=== PATIENT | female | born 1960 | race Caucasian/White ===

== ENCOUNTER → 2016-06-09 | Outpatient (REF) | payer OTHER ==
[2016-06-09 15:40] LABS: BASO % 0.3 % (0.0-1.0); EOS # 0.2 K/mm3 (0.0-0.50); EOS % 1.7 % (0.0-3.0); LARGE UNSTAINED CELL # 0.1 K/mm3 (0.0-0.4); LARGE UNSTAINED CELL % 1.1 % (0.0-4.0); LYMPH # 1.9 K/mm3 (1.5-4.5); MEAN CORPUSCULAR HGB CONC 34.5 g/dl (32.0-36.5); MEAN CORPUSCULAR VOLUME 92.9 fl (80.0-96.0); MONO # 0.5 K/mm3 (0.0-0.8); MONO % 4.9 % (0.0-5.0); NEUTROPHILS # 6.8 K/mm3 (1.8-7.7); PLATELET COUNT, AUTOMATED 342 k/mm3 (150-450); RED CELL DISTRIBUTION WIDTH 12.2 % (11.5-14.5); WHITE BLOOD COUNT 9.3 K/mm3 (4.0-10.0)
[2016-06-09 15:50] LABS: ALBUMIN 3.4 GM/DL (3.2-5.2); ALBUMIN/GLOBULIN RATIO 0.94 (1.00-1.93); ALKALINE PHOSPHATASE 55 U/L (45-117); ALT/SGPT 18 U/L (12-78); AMYLASE 49 U/L (25-115); ANION GAP 9 MEQ/L (8-16); AST/SGOT 10 U/L (15-37); BILIRUBIN,TOTAL 0.8 MG/DL (0.2-1.0); BLOOD UREA NITROGEN 16 MG/DL (7-18); CALCIUM LEVEL 8.8 MG/DL (8.5-10.1); CARBON DIOXIDE LEVEL 29 MEQ/L (21-32); CHLORIDE LEVEL 100 MEQ/L (98-107); CREATININE FOR GFR 0.94 MG/DL (0.55-1.02); GLOMERULAR FILTRATION RATE > 60.0 (>51); GLUCOSE, FASTING 84 MG/DL (70-105); POTASSIUM SERUM 3.5 MEQ/L (3.5-5.1); SODIUM LEVEL 138 MEQ/L (136-145)
== END ==
LOC: M LABDRAW1 13:15
PROVIDERS: ATTEND Emergency Medicine
DX: R10.11 Right upper quadrant pain (principal)

== ENCOUNTER → 2016-06-16 | Outpatient (CLI) | payer BC, OTHER ==
--- NOTE | 2016-06-16 15:31 | REPMRS ---
Patient History The patient states she had a clinical breast exam in 12/23 Family history of colorectal cancer in maternal grandmother at age 78. Taking hormonal contraceptives for 28 years. Digital Woman Screen Mammo: June 16, 2016 - Exam #: [id number] Bilateral CC and MLO view(s) were taken. Technologist: Tamiko Varghese, Technologist Prior study comparison: March 11, 2015, digital woman screen mammo performed at [facility]. December 01, 2013, bilateral bilat screen digital mammo, performed at [facility] ([facility] FINDINGS: There are scattered fibroglandular densities. There has been no change in the appearance of the mammogram from the prior studies. There is a mild amount of residual fibroglandular tissue which is fairly symmetric. There is no interval development of dominant mass, architectural distortion, or clustered microcalcification suggestive of malignancy. ASSESSMENT: BI-RADS/ACR category 1 mammogram. Negative. Recommendation Routine screening mammogram in 1 year (for women over age 40). This mammogram was interpreted with the aid of an FDA-approved computer-aided dectection system. Electronically Signed By: Jared Chow MD 06/16/16 [id number]
== END ==
LOC: M WHC 15:09
PROVIDERS: ATTEND Obstetrics & Gynecology
DX: Z12.31 Encounter for screening mammogram for malignant neoplasm of breast (principal)

== ENCOUNTER 2016-07-06 07:28 | Day surgery (SDC) | payer BC, OTHER ==
[2016-07-06] VITALS (7 sets, daily range): BP systolic 101–117; BP diastolic 56–68
[~2016-07-06] VITALS: Ht 162.6 cm; Wt 86.2 kg
[~2016-07-06 07:28] MED LIST: AMET1TAB4 PO; ATEN50TA2 PO; ESCI20TA PO; HYOS0.1259 PO; LEVO100T5 PO; LISI20TA3 PO; OMEP40CA2 PO
[2016-07-06] MEDS ORDERED: LR 1,000 ML IV SCH ×3 (07:45→11:15)
[2016-07-06] MEDS ORDERED: ONDANSETRON 4MG/2ML VIAL (J2405) As Ordered ONE (08:08)
[2016-07-06] MEDS ORDERED: ROCURONIUM BROMIDE 50 MG/5 ML VIAL As Ordered ONE (08:08)
[2016-07-06] MEDS ORDERED: LIDOCAINE 2% INJ 100 MG/5 ML SYRINGE As Ordered ONE (08:08)
[2016-07-06] MEDS ORDERED: LIDOCAINE 2% INJ 100 MG/5 ML SDV (FOR ANES.) As Ordered ONE (08:08)
[2016-07-06] MEDS ORDERED: fentaNYL 250 MCG/5 ML INJECTION (J3010) As Ordered ONE (08:08)
[2016-07-06] MEDS ORDERED: dexameTHASONE 4 MG/ML 1ML VIAL (J1100) As Ordered ONE (08:08)
[2016-07-06] MEDS ORDERED: PROPOFOL 200 MG/20 ML VIAL As Ordered ONE (08:08)
[2016-07-06] MEDS ORDERED: MIDAZOLAM INJ 2 MG/2 ML VIAL (J2250) As Ordered ONE (08:08)
[2016-07-06 08:15] LABS: CONTROL LINE HCG INT CTR LINE PRESENT
[2016-07-06] MEDS ORDERED: LEVOTHYROXINE 100 MCG (0.1MG) VIAL IV SCH (09:00)
[2016-07-06] MEDS ORDERED: SEVOFLURANE INHAL SOLN 250 ML BTL As Ordered ONE (09:03)
[2016-07-06] MEDS ORDERED: ePHEDrine SULFATE 25 MG/5 ML(5MG/ML) SYRINGE As Ordered ONE (09:37)
[2016-07-06] MEDS ORDERED: KETOROLAC 60 MG/2 ML VIAL (J1885) As Ordered ONE (09:50)
[2016-07-06] MEDS ORDERED: NEOSTIGMINE 1MG/ML 5 ML SYRINGE (J2710) As Ordered ONE (09:50)
[2016-07-06] MEDS ORDERED: GLYCOPYRROLATE INJ 0.2 MG/ML 2 ML VIAL As Ordered ONE (09:50)
[2016-07-06] MEDS ORDERED: HYDROmorphone HCL 2 MG/ML 1ML VIAL (J1170) As Ordered ONE (09:53)
[2016-07-06] MEDS ORDERED: MORPHINE PCA 1MG/ML 100ML CADD As Ordered ONE (10:52)
[2016-07-06] MEDS ORDERED: ONDANSETRON 4MG/2ML VIAL (J2405) IV PRN (11:15)
[2016-07-06] MEDS ORDERED: MORPHINE 2 MG/ML 1ML SYRINGE IV PRN (11:15)
[2016-07-06] MEDS ORDERED: fentaNYL 100 MCG/2 ML INJECTION (J3010) IV PRN (11:15)
[2016-07-06] MEDS ORDERED: NALOXONE INJ 0.4 MG/1 ML VIAL (J2310) IV PRN (11:30)
[2016-07-06] MEDS ORDERED: IBUPROFEN 600 MG TAB PO PRN (11:30)
[2016-07-06] MEDS ORDERED: NALBUPHINE HCL 10 MG/ML AMP (J2300) IV PRN (11:30)
[2016-07-06] MEDS ORDERED: MORPHINE PCA 1MG/ML 100ML CADD IV PRN (11:30)
[2016-07-06] MEDS ORDERED: diphenhydrAMINE INJ 50MG/ML VIAL (J1200) IV PRN (11:30)
[2016-07-06] MEDS ORDERED: EPIDURAL/PCA KEYS XX PRN (11:30)
[2016-07-06] MEDS: LR 1,000 ML IV SCH ×2 (13:10→19:52)
--- NOTE | 2016-07-06 14:39 | RO ---
DATE OF PROCEDURE: 07/06/2016 PREPROCEDURE DIAGNOSES/INDICATION FOR SURGERY: Bleeding, pain and failed conservative efforts and history of fibroids in the past. POSTPROCEDURE DIAGNOSES: Bleeding, pain and failed conservative efforts and history of fibroids in the past. PROCEDURE: Laparoscopic assisted vaginal hysterectomy with bilateral salpingo-oophorectomy. SURGEON: Dayana Juárez MD SEAT MENDER: None. ANESTHESIA: General endotracheal anesthesia. BRIEF DESCRIPTION OF PROCEDURE AND FINDINGS: Alba was brought to the operating room where sufficient general endotracheal anesthesia was induced and she was prepped, draped and positioned in the usual sterile fashion with a weighted speculum placed and the bladder emptied with the Egan with the ability to backfill placed. Then the uterine manipulator placed. Attention was then turned to the abdomen. A semi-lunar incision was made below the umbilicus and sharp and blunt dissection were continued through the subcutaneous tissues to the level of the rectus fascia, which was elevated to the wound, transversely incised and secured with #0 Vicryl retention sutures. The peritoneum was entered under direct visualization and the Elpidio cannula was placed again under direct visualization. CO2 insufflation was then begun. After adequate insufflation, the peritoneal cavity was visualized using the laparoscope. Normal shiny peritoneal surfaces were noted throughout. There were no excrescences, ascites, nor exudate. There were some minor adhesions of the descending colon on the left side, some of those were taken down with cold scissors. We did not use cautery on the scissors in this case, only on the Enseal. We were able to visualize mobile, normal ovaries in this relatively thin patient. There was no adherence of the ovaries to the fossa. The pedicles on the infundibulopelvic were reasonably well developed, so the decision was made to use the 45 Enseal through the operative port at the umbilical site to cauterize and transect the infundibulopelvic ligaments, which was done carefully in the normal fashion. We then continued that dissection through the round ligaments bilaterally and then worked the dissection back toward the uterus and then used the scissors to cold cut the peritoneal reflection of the bladder after back filling the bladder to confirm the lack of injury during any of this dissection and to confirm that it was not unduly close to any of the use of bipolar with the Enseal. Having freed both ovaries and tubes and the round ligaments bilaterally and transected with the cold scissors the bladder flap, we then removed the patient from the Trendelenburg she had been in and turned our attention to the vaginal approach with of course the instruments removed but not the trocar port. The uterine manipulator was removed and the anterior and posterior aspect of the cervix grasped with single tooth tenacula with retractors in place, a weighted and anterior [place], a circumferential incision was made around the base of the cervix. The cardinal ligaments were isolated and clamped with the D'Woo clamps, which were used throughout, transected with the Super Cut scissors, which were also used throughout, and then ligated with #0 Vicryl, which was again used throughout this portion of the case. After the cardinal ligaments had been transected, the posterior reflection of the peritoneum was then entered and the uterosacral ligaments were clamped, transected, ligated and secured to the vaginal cuff for later support. The dissection was continued anteriorly to join up with the dissection from above. We then carefully clamped, transected, and ligated the uterine vasculature in a sequential fashion until we reached the levels of our previous dissection and the uterus was delivered with the attached right ovary. We transected the left ovary so that we could visualize. There was a small anterior fibroid and the uterus was blocking my view of that pedicle, so we just went ahead and transected the pedicle to the ovary and tube, the utero-ovarian suspensory ligament and the fallopian tube so that we could deliver the uterus and the attached right ovary and tube and visualize that left pedicle. We then just brought down with the Frida and clamped the remaining portion with the D'Woo and transected and ligated it, again using #0 Vicryl suture. With the sponge and a stick, we were able to visualize the pedicles to confirm good hemostasis. Single stitches of #0 Vicryl were then taken at the cuff and of course the uterosacrals were reincorporated into the closure and a running lock closure of #0 Vicryl was then achieved with good approximation and hemostasis. Attention was then turned to the umbilical port. The trocar was removed. #0 Vicryl sutures were used to close the fascia layer at the umbilicus and #3-0 Vicryl was used at the skin and a subcuticular stitch. A dry sterile dressing then applied. The procedure was then ended. Estimated blood loss for the procedure was about 75 mL. Fluid replacement was crystalloid. Complications: None. Condition and Disposition: Alba tolerated the procedure well and was recovering in the recovery room in good condition.
[2016-07-06] MEDS ORDERED: HYOSCYAMINE SULFATE 0.125 MG SUBL TABLET PO PRN (16:00)
[2016-07-06] MEDS: ATENOLOL 50 MG TAB PO SCH (16:04)
[2016-07-06] MEDS: ESCITALOPRAM OXALATE 10 MG TAB (LEXAPRO) PO SCH (16:12)
[2016-07-06] MEDS: LISINOPRIL 20 MG TAB PO SCH (16:13)
[2016-07-06] MEDS: hydroCHLOROthiazide 25 MG TAB PO SCH (16:13)
[2016-07-07] VITALS: BP 124/58
[2016-07-07] MEDS: LR 1,000 ML IV SCH (02:34)
[2016-07-07 04:23] VITALS: BP 120/65
[2016-07-07] MEDS ORDERED: LEVOTHYROXINE 0.1 MG TAB (100 MCG) PO SCH (06:00)
[2016-07-07] MEDS ORDERED: NORCO, ANEXSIA 5/325MG TABLET (HYDROcodone/ACETAMINOPHEN) PO PRN (06:00)
[2016-07-07 07:02] LABS: RED CELL DISTRIBUTION WIDTH 12.3 % (11.5-14.5); WHITE BLOOD COUNT 14.1 K/mm3 (4.0-10.0)
[2016-07-07 09:00] VITALS: BP 147/74
[2016-07-07] MEDS ORDERED: OMEPRAZOLE 20 MG CAP PO SCH (09:00)
[2016-07-07 09:02] VITALS: BP 147/74
[2016-07-07] MEDS: ATENOLOL 50 MG TAB PO SCH (09:02)
[2016-07-07] MEDS: hydroCHLOROthiazide 25 MG TAB PO SCH (09:03)
[2016-07-07] MEDS: LISINOPRIL 20 MG TAB PO SCH (09:03)
[2016-07-07] MEDS: ESCITALOPRAM OXALATE 10 MG TAB (LEXAPRO) PO SCH (09:04)
[2016-07-07] MEDS ORDERED: MOTR200T44 PO (09:32)
[2016-07-07] MEDS ORDERED: NORC1TAB4 PO (10:03)
--- NOTE | 2016-07-07 22:07 | ECGEPIP ---
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
== END 2016-07-07 10:50 | disposition home or self-care (01) ==
LOC: M SDC 07:28 → M PED 12:06 → M SDC 07-07 10:50
PROVIDERS: ATTEND Obstetrics & Gynecology
DX: N72 Inflammatory disease of cervix uteri (principal); R10.2 Pelvic and perineal pain; D25.9 Leiomyoma of uterus, unspecified; I10 Essential (primary) hypertension; E03.9 Hypothyroidism, unspecified; K58.8 Other irritable bowel syndrome; K21.9 Gastro-esophageal reflux disease without esophagitis; F32.9 Major depressive disorder, single episode, unspecified; F41.9 Anxiety disorder, unspecified; Z87.891 Personal history of nicotine dependence; Z79.899 Other long term (current) drug therapy
CPT/HCPCS: 36415; 58552; 84703; 85027; 86850; 86900; 86901; 88309; 93005; J0690; J1100; J1170; J1885; J2250; J2405; J2710; J3010

== ENCOUNTER → 2016-10-18 | Outpatient (REF) | payer OTHER ==
[~2016-10-18] MED LIST changes: +MOTR200T44 PO; +NORC1TAB4 PO
[2016-10-18 15:52] LABS: BASO % 0.4 % (0.0-1.0); EOS # 0.4 K/mm3 (0.0-0.50); EOS % 5.5 % (0.0-3.0); LARGE UNSTAINED CELL # 0.1 K/mm3 (0.0-0.4); LARGE UNSTAINED CELL % 1.2 % (0.0-4.0); LYMPH # 1.6 K/mm3 (1.5-4.5); LYMPH % 20.4 % (24.0-44.0); MEAN CORPUSCULAR HEMOGLOBIN 31.2 pg (27.0-33.0); MEAN CORPUSCULAR VOLUME 91.8 fl (80.0-96.0); MONO # 0.4 K/mm3 (0.0-0.8); NEUTROPHILS # 5.1 K/mm3 (1.8-7.7); NEUTROPHILS % 67.5 % (36.0-66.0); PLATELET COUNT, AUTOMATED 311 k/mm3 (150-450); RED CELL DISTRIBUTION WIDTH 12.6 % (11.5-14.5); WHITE BLOOD COUNT 7.5 K/mm3 (4.0-10.0)
[2016-10-18 16:46] LABS: ALBUMIN 3.6 GM/DL (3.2-5.2); ALBUMIN/GLOBULIN RATIO 1.09 (1.00-1.93); ALKALINE PHOSPHATASE 107 U/L (45-117); ALT/SGPT 56 U/L (12-78); ANION GAP 8 MEQ/L (8-16); AST/SGOT 29 U/L (15-37); BLOOD UREA NITROGEN 20 MG/DL (7-18); CALCIUM LEVEL 9.2 MG/DL (8.5-10.1); CARBON DIOXIDE LEVEL 29 MEQ/L (21-32); CHLORIDE LEVEL 103 MEQ/L (98-107); CREATININE FOR GFR 0.83 MG/DL (0.55-1.02); FREE T4 1.33 NG/DL (0.76-1.46); GLOMERULAR FILTRATION RATE > 60.0 (>51); GLUCOSE, FASTING 84 MG/DL (70-105); POTASSIUM SERUM 3.8 MEQ/L (3.5-5.1); SODIUM LEVEL 140 MEQ/L (136-145); TOTAL PROTEIN 6.9 GM/DL (6.4-8.2)
[2016-10-18 17:01] LABS: FOLATE > 24.0 NG/ML; VITAMIN B12 LEVEL > 2000 PG/ML
== END ==
LOC: M LABDRAW1 15:20
PROVIDERS: ATTEND Emergency Medicine
DX: I10 Essential (primary) hypertension (principal); E03.9 Hypothyroidism, unspecified; E55.9 Vitamin D deficiency, unspecified; R53.83 Other fatigue

== ENCOUNTER → 2016-10-19 | Outpatient (CLI) | payer BC, OTHER ==
--- NOTE | 2016-10-19 13:57 | REP ---
MRI ABDOMEN WITH AND WITHOUT CONTRAST: TECHNIQUE: Multiple axial and coronal sequences obtained prior to and following the intravenous administration of 16 mL of gadolinium. Correlation is made with prior CT abdomen and pelvis performed at [facility] 06/14/2016. The liver and spleen are normal in size with no intrinsic abnormality. No signal abnormality or enhancing nodule is seen. The adrenals demonstrate no mass. The pancreas demonstrates normal signal. No pancreatic mass is seen. The pancreatic duct is normal in caliber. The kidneys appear unremarkable. There is no hydronephrosis. There is no evidence of dilatation of the visualized abdominal aorta. No adenopathy or free fluid is seen in the visualized abdomen. The patient has had a prior cholecystectomy. No biliary dilatation is seen. IMPRESSION: Status post cholecystectomy. No abnormality seen in the abdomen. Signed by Jared Chow MD 10/19/2016 03:58 P
== END ==
LOC: M RAD 11:04
PROVIDERS: ATTEND Internal Medicine Gastroenterology
DX: R10.11 Right upper quadrant pain (principal); R79.9 Abnormal finding of blood chemistry, unspecified; R11.0 Nausea; Z90.49 Acquired absence of other specified parts of digestive tract
CPT/HCPCS: 74183; A9576

== ENCOUNTER → 2016-11-13 | Outpatient (CLI) | payer BC, OTHER ==
[2016-11-13 20:39] LABS: ALBUMIN 3.6 GM/DL (3.2-5.2); ALBUMIN/GLOBULIN RATIO 1.06 (1.00-1.93); ALKALINE PHOSPHATASE 96 U/L (45-117); ALT/SGPT 29 U/L (12-78); ANION GAP 9 MEQ/L (8-16); AST/SGOT 21 U/L (15-37); BILIRUBIN,DIRECT 0.1 MG/DL (0.0-0.2); BILIRUBIN,TOTAL 0.7 MG/DL (0.2-1.0); BLOOD UREA NITROGEN 17 MG/DL (7-18); CALCIUM LEVEL 9.1 MG/DL (8.5-10.1); CARBON DIOXIDE LEVEL 29 MEQ/L (21-32); CHLORIDE LEVEL 103 MEQ/L (98-107); GLOMERULAR FILTRATION RATE > 60.0 (>51); GLUCOSE, FASTING 94 MG/DL (70-105); POTASSIUM SERUM 3.9 MEQ/L (3.5-5.1); SODIUM LEVEL 141 MEQ/L (136-145)
== END ==
LOC: M WUC 16:08
PROVIDERS: ATTEND Obstetrics & Gynecology
DX: R10.11 Right upper quadrant pain (principal); R79.9 Abnormal finding of blood chemistry, unspecified

== ENCOUNTER → 2017-03-22 | Outpatient (REF) | payer OTHER ==
[~2017-03-22] MED LIST changes: +GABA-282; +SUCR1TAB56
== END ==
LOC: M LAB REF 09:25
PROVIDERS: ATTEND Physician Assistant
DX: J02.9 Acute pharyngitis, unspecified (principal)

== ENCOUNTER 2017-03-24 11:21 | Emergency (ER) | payer BC, OTHER ==
[~2017-03-24] VITALS: Ht 162.6 cm; Wt 81.8 kg
[~2017-03-24 11:21] MED LIST changes: -GABA-282; -SUCR1TAB56
[2017-03-24] MEDS ORDERED: GABA-282 (11:37)
[2017-03-24] MEDS ORDERED: SUCR1TAB56 (11:37)
[2017-03-24] MEDS ORDERED: BICILLIN L-A 2,400,000 UNIT/4 ML SYRINGE (J0561-24)PENICILLIN G BENZATINE IM ONE (13:30)
[2017-03-24] MEDS ORDERED: IBUPROFEN 800 MG TAB PO ONE (13:45)
[2017-03-24 14:13] VITALS: BP 170/96
== END 2017-03-24 14:14 | disposition home or self-care (01) ==
LOC: M ED 11:21
DX: J03.90 Acute tonsillitis, unspecified (principal); I10 Essential (primary) hypertension; K21.9 Gastro-esophageal reflux disease without esophagitis; K20.9 Esophagitis, unspecified; Z79.899 Other long term (current) drug therapy
CPT/HCPCS: 96372; 99283; J0561

== ENCOUNTER → 2017-08-27 | Outpatient (REF) | payer BC, OTHER ==
[2017-08-27 15:32] LABS: BASO # 0.1 10^3/uL (0.0-0.2); BASO % 0.8 % (0.0-1.0); EOS # 0.2 10^3/uL (0.0-0.50); EOS % 2.6 % (0.0-3.0); HEMATOCRIT 35.7 % (36.0-47.0); IMMATURE GRANULOCYTE % 0.4 % (0-3.0); LYMPH # 2.1 10^3/uL (1.5-4.5); LYMPH % 28.5 % (24.0-44.0); MEAN CORPUSCULAR HEMOGLOBIN 30.4 pg (27.0-33.0); MEAN CORPUSCULAR HGB CONC 33.6 g/dl (32.0-36.5); MEAN CORPUSCULAR VOLUME 90.4 fl (80.0-96.0); MONO # 0.5 10^3/uL (0.0-0.8); MONO % 6.5 % (0.0-5.0); NEUTROPHILS # 4.5 10^3/uL (1.8-7.7); NEUTROPHILS % 61.2 % (36.0-66.0); PLATELET COUNT, AUTOMATED 318 10^3/uL (150-450); RED BLOOD COUNT 3.95 10^6/uL (4.00-5.40); RED CELL DISTRIBUTION WIDTH 12.7 % (11.5-14.5); WHITE BLOOD COUNT 7.4 10^3/uL (4.0-10.0)
[2017-08-27 15:57] LABS: TOTAL 25(OH) VITAMIN D 38.4 NG/ML (30.0-100.0); VITAMIN B12 LEVEL 807 PG/ML
[2017-08-27 15:58] LABS: FOLATE > 24.0 NG/ML
[2017-08-27 16:00] LABS: ALBUMIN 3.5 GM/DL (3.2-5.2); ALKALINE PHOSPHATASE 114 U/L (45-117); ALT/SGPT 21 U/L (12-78); ANION GAP 8 MEQ/L (8-16); AST/SGOT 14 U/L (7-37); BILIRUBIN,TOTAL 0.8 MG/DL (0.2-1.0); BLOOD UREA NITROGEN 15 MG/DL (7-18); CALCIUM LEVEL 8.8 MG/DL (8.5-10.1); CARBON DIOXIDE LEVEL 30 MEQ/L (21-32); CHLORIDE LEVEL 105 MEQ/L (98-107); CREATININE FOR GFR 0.91 MG/DL (0.55-1.30); FREE T4 1.05 NG/DL (0.76-1.46); GLOMERULAR FILTRATION RATE > 60.0 (>51); GLUCOSE, FASTING 93 MG/DL (70-100); POTASSIUM SERUM 3.8 MEQ/L (3.5-5.1); SODIUM LEVEL 143 MEQ/L (136-145)
== END ==
LOC: M LABDRAW1 15:22
DX: I10 Essential (primary) hypertension (principal); E03.9 Hypothyroidism, unspecified; E55.9 Vitamin D deficiency, unspecified; R53.83 Other fatigue
CPT/HCPCS: 82746

== ENCOUNTER → 2017-09-04 | Outpatient (CLI) | payer OTHER, BC ==
[2017-09-04 19:45] LABS: RHEUMATOID FACTOR QUANT < 10.0 IU/ML (<15.0)
[2017-09-04 20:04] LABS: BASO # 0.1 10^3/uL (0.0-0.2); BASO % 0.6 % (0.0-1.0); EOS # 0.2 10^3/uL (0.0-0.50); EOS % 2.4 % (0.0-3.0); HEMATOCRIT 36.6 % (36.0-47.0); HEMOGLOBIN 12.2 g/dl (12.0-15.5); IMMATURE GRANULOCYTE % 0.5 % (0-3.0); LYMPH # 1.6 10^3/uL (1.5-4.5); LYMPH % 20.9 % (24.0-44.0); MEAN CORPUSCULAR HEMOGLOBIN 30.1 pg (27.0-33.0); MEAN CORPUSCULAR HGB CONC 33.3 g/dl (32.0-36.5); MEAN CORPUSCULAR VOLUME 90.4 fl (80.0-96.0); MONO # 0.4 10^3/uL (0.0-0.8); NEUTROPHILS # 5.5 10^3/uL (1.8-7.7); NEUTROPHILS % 70.6 % (36.0-66.0); PLATELET COUNT, AUTOMATED 350 10^3/uL (150-450); RED BLOOD COUNT 4.05 10^6/uL (4.00-5.40); RED CELL DISTRIBUTION WIDTH 12.8 % (11.5-14.5); WHITE BLOOD COUNT 7.8 10^3/uL (4.0-10.0)
[2017-09-04 21:30] LABS: ERYTHROCYTE SEDIMENTATION RATE 37 mm/hr (0-30)
[2017-09-07 03:02] LABS: ANA (HEP2) Negative (.)
[2017-09-12 00:07] LABS: HLA-B27 Negative (.); Lyme Disease IgG/IgM Antibodie <0.91 ISR (0.00-0.90); Lyme Disease IgM Ab Quantitati <0.80 index (0.00-0.79)
== END ==
LOC: M WUC 16:05
DX: M12.9 Arthropathy, unspecified (principal)

== ENCOUNTER → 2017-09-18 | Outpatient (CLI) | payer BC, OTHER | LOC: M RAD 07:42 | DX: R14.3 Flatulence (principal); K29.70 Gastritis, unspecified, without bleeding; K21.9 Gastro-esophageal reflux disease without esophagitis; K44.9 Diaphragmatic hernia without obstruction or gangrene; K59.00 Constipation, unspecified | CPT/HCPCS: 78264 ==

== ENCOUNTER → 2017-09-24 | Outpatient (REF) | payer BC, OTHER ==
[2017-09-24 15:56] LABS: CORTISOL BASELINE 18.9 UG/DL (4.3-22.4)
[2017-09-24 15:57] LABS: LUTEINIZING HORMONE 9.5 mIU/mL
[2017-09-24 15:57] LABS: PROGESTERONE < 0.2 NG/ML
[2017-09-24 15:58] LABS: FOLLICLE STIMULATING HORMONE 38.5 mIU/mL
[2017-09-28 00:10] LABS: SEX HORMONE BINDING GLOBULIN 58.4 nmol/L (17.3-125.0); TESTOSTERONE FREE (DIRECT) 2.1 pg/mL (0.0-4.2)
[2017-09-28 00:10] LABS: ESTRONE SERUM 65 pg/mL (.)
== END ==
LOC: M LABDRAW1 11:59
DX: N95.1 Menopausal and female climacteric states (principal)

== ENCOUNTER → 2017-10-03 | Outpatient (CLI) | payer BC | LOC: M WHC 15:04 | DX: Z12.31 Encounter for screening mammogram for malignant neoplasm of breast (principal) | CPT/HCPCS: 77067 ==

== ENCOUNTER 2017-12-01 18:23 | Emergency (ER) | payer BC, OTHER ==
[2017-12-01 19:34] LABS: BASO # 0.1 10^3/uL (0.0-0.2); BASO % 0.4 % (0.0-1.0); EOS # 0.1 10^3/uL (0.0-0.50); EOS % 0.7 % (0.0-3.0); HEMATOCRIT 36.8 % (36.0-47.0); HEMOGLOBIN 12.2 g/dl (12.0-15.5); IMMATURE GRANULOCYTE % 0.4 % (0-3.0); LYMPH # 1.8 10^3/uL (1.5-4.5); LYMPH % 11.5 % (24.0-44.0); MEAN CORPUSCULAR HGB CONC 33.2 g/dl (32.0-36.5); MEAN CORPUSCULAR VOLUME 93.6 fl (80.0-96.0); MONO # 1.1 10^3/uL (0.0-0.8); MONO % 6.7 % (0.0-5.0); NEUTROPHILS # 12.9 10^3/uL (1.8-7.7); NEUTROPHILS % 80.3 % (36.0-66.0); PLATELET COUNT, AUTOMATED 316 10^3/uL (150-450); RED BLOOD COUNT 3.93 10^6/uL (4.00-5.40); RED CELL DISTRIBUTION WIDTH 13.1 % (11.5-14.5)
[2017-12-01] MEDS: NS 1,000 ML IV (19:35)
[2017-12-01] MEDS: KETOROLAC 30 MG/ML VIAL (J1885) IV (19:35)
[2017-12-01 19:58] LABS: ALBUMIN 3.8 GM/DL (3.2-5.2); ALBUMIN/GLOBULIN RATIO 1.09 (1.00-1.93); ALKALINE PHOSPHATASE 104 U/L (45-117); ALT/SGPT 21 U/L (12-78); ANION GAP 6 MEQ/L (8-16); AST/SGOT 12 U/L (7-37); BILIRUBIN,TOTAL 0.5 MG/DL (0.2-1.0); BLOOD UREA NITROGEN 17 MG/DL (7-18); CALCIUM LEVEL 8.8 MG/DL (8.5-10.1); CARBON DIOXIDE LEVEL 31 MEQ/L (21-32); CHLORIDE LEVEL 105 MEQ/L (98-107); CREATININE FOR GFR 0.99 MG/DL (0.55-1.30); GLOMERULAR FILTRATION RATE > 60.0 (>51); GLUCOSE, FASTING 107 MG/DL (70-100); LIPASE 398 U/L (73-393); POTASSIUM SERUM 3.2 MEQ/L (3.5-5.1); SODIUM LEVEL 142 MEQ/L (136-145); TOTAL PROTEIN 7.3 GM/DL (6.4-8.2)
[2017-12-01] MEDS ORDERED: ISOVUE-370 76% 100ML VIAL (Q9967) As Ordered (20:20)
[2017-12-01 21:41] LABS: KETONE, URINE AUTO RFX NEGATIVE (NEGATIVE); LEUKOCYTE ESTERASE UR AUTO RFX 3+ (NEGATIVE); NITRITE, URINE AUTO RFX NEGATIVE (NEGATIVE); RBC, URINE AUTO RFX TNTC /HPF (0-3); SPECIFIC GRAVITY UR AUTO RFX 1.041 (1.002-1.035); SQUAM EPITHELIAL CELL UR AURFX 0 /HPF (0-6); WBC, URINE AUTO RFX TNTC /HPF (0-3)
[2017-12-01] MEDS: NITROFURANTOIN (MACROBID) 100 MG CAP PO (22:05)
[2017-12-01] MEDS: PHENAZOPYRIDINE 100 MG TAB PO (22:06)
== END 2017-12-01 22:11 | disposition home or self-care (01) ==
LOC: M ED 18:23
DX: N30.01 Acute cystitis with hematuria (principal); R74.8 Abnormal levels of other serum enzymes; I10 Essential (primary) hypertension; K21.9 Gastro-esophageal reflux disease without esophagitis; E03.9 Hypothyroidism, unspecified; Z87.891 Personal history of nicotine dependence; Z79.899 Other long term (current) drug therapy
CPT/HCPCS: Q9967

== ENCOUNTER → 2018-08-14 | Outpatient (CLI) | payer BC, OTHER ==
[~2018-08-14] MED LIST changes: +GABA-843; +MACR100C43 PO; -NORC1TAB4 PO; +NORC1TAB7 PO; +PYRI1TAB5 PO; +SUCR1TAB56
[2018-08-14 16:31] LABS: BASO # 0.1 10^3/uL (0.0-0.2); BASO % 0.8 % (0.0-1.0); EOS # 0.2 10^3/uL (0.0-0.50); EOS % 1.9 % (0.0-3.0); HEMATOCRIT 39.6 % (36.0-47.0); HEMOGLOBIN 12.9 g/dl (12.0-15.5); LYMPH % 22.5 % (24.0-44.0); MEAN CORPUSCULAR HEMOGLOBIN 31.1 pg (27.0-33.0); MEAN CORPUSCULAR HGB CONC 32.6 g/dl (32.0-36.5); MEAN CORPUSCULAR VOLUME 95.4 fl (80.0-96.0); MONO # 0.5 10^3/uL (0.0-0.8); MONO % 5.7 % (0.0-5.0); NEUTROPHILS % 68.8 % (36.0-66.0); PLATELET COUNT, AUTOMATED 340 10^3/uL (150-450); RED BLOOD COUNT 4.15 10^6/uL (4.00-5.40); WHITE BLOOD COUNT 8.8 10^3/uL (4.0-10.0)
[2018-08-14 16:41] LABS: ALBUMIN 3.8 GM/DL (3.2-5.2); ALT/SGPT 21 U/L (12-78); BILIRUBIN,TOTAL 0.5 MG/DL (0.2-1.0); BLOOD UREA NITROGEN 21 MG/DL (7-18); CARBON DIOXIDE LEVEL 33 MEQ/L (21-32); CHLORIDE LEVEL 102 MEQ/L (98-107); CHOLESTEROL LEVEL 273 MG/DL (<200); CHOLESTEROL RISK RATIO 4.789 (<5); CREATININE FOR GFR 0.96 MG/DL (0.55-1.30); FREE T4 0.94 NG/DL (0.76-1.46); GLOMERULAR FILTRATION RATE > 60.0 (>51); GLUCOSE, FASTING 94 MG/DL (70-100); HDL CHOLESTEROL 57 MG/DL (>40); LDL CHOLESTEROL 175 MG/DL (<100); NON-HDL-C 216 MG/DL; POTASSIUM SERUM 4.2 MEQ/L (3.5-5.1); SODIUM LEVEL 138 MEQ/L (136-145); TRIGLYCERIDES LEVEL 203 MG/DL (<150)
== END ==
LOC: M WUC 12:39
PROVIDERS: ATTEND Family Medicine
DX: E03.9 Hypothyroidism, unspecified (principal)

== ENCOUNTER → 2019-05-30 | Outpatient (CLI) | payer OTHER, BC ==
[~2019-05-30] MED LIST changes: +LISI20TA20 PO; -LISI20TA3 PO; -OMEP40CA2 PO; +OMEP40CA97 PO
[2019-05-30 20:48] LABS: FREE T4 1.27 NG/DL (0.76-1.46); THYROID STIMULATING HORMONE 0.918 uIU/ML (0.358-3.740)
== END ==
LOC: M WUC 16:47
PROVIDERS: ATTEND Physician Assistant
DX: E03.9 Hypothyroidism, unspecified (principal)

== ENCOUNTER 2019-09-08 08:53 | Emergency (ER) | payer BC, OTHER ==
[~2019-09-08] VITALS: Ht 162.6 cm; Wt 79.5 kg
[~2019-09-08 08:53] MED LIST changes: -ESCI20TA PO; +ESCI20TA16 PO; +GABA-282; -GABA-843
[2019-09-08] MEDS ORDERED: ONDANSETRON 4MG/2ML VIAL IV ONE (09:15)
[2019-09-08] MEDS ORDERED: NS 1,000 ML IV ONE (09:15)
[2019-09-08] MEDS ORDERED: diazePAM 10MG/2ML SYRINGE (J3360 PER 5MG) IV ONE (09:15)
[2019-09-08 09:31] LABS: HEMATOCRIT 38.2 % (36.0-47.0); HEMOGLOBIN 12.9 g/dl (12.0-15.5); MEAN CORPUSCULAR HEMOGLOBIN 30.9 pg (27.0-33.0); MEAN CORPUSCULAR HGB CONC 33.8 g/dl (32.0-36.5); MEAN CORPUSCULAR VOLUME 91.4 fl (80.0-96.0); PLATELET COUNT, AUTOMATED 288 10^3/uL (150-450); RED BLOOD COUNT 4.18 10^6/uL (4.00-5.40); WHITE BLOOD COUNT 9.8 10^3/uL (4.0-10.0)
[2019-09-08 10:07] LABS: ALBUMIN 3.7 GM/DL (3.2-5.2); BILIRUBIN,DIRECT 0.1 MG/DL (0.0-0.2); BILIRUBIN,TOTAL 0.6 MG/DL (0.2-1.0); TOTAL PROTEIN 7.3 GM/DL (6.4-8.2)
[2019-09-08] MEDS ORDERED: MECLIZINE 25 MG TABLET PO ONE (11:30)
[2019-09-08] MEDS ORDERED: rolling walker (14:41)
--- NOTE | 2019-09-08 16:04 | REPVR ---
PROCEDURE INFORMATION: Exam: MR Head Without Contrast Exam date and time: 09/08/2019 3:25 PM Age: 59 years old Clinical indication: Dizziness; Additional info: Vertigo TECHNIQUE: Imaging protocol: MR of the head without contrast. COMPARISON: No relevant prior studies available. FINDINGS: Brain: No acute infarct identified on the diffusion-weighted imaging. No parenchymal hemorrhage. No evidence of brain parenchymal edema or intracranial mass effect. Patchy foci of increased signal intensity in the deep white matter on the T2 weighted imaging, nonspecific, may represent chronic small vessel ischemic change. Ventricles: No ventriculomegaly. Bones/joints: Unremarkable. Sinuses: The right maxillary sinus appears hypoplastic and opacified by mucosal disease. Mastoid air cells: Normal as visualized. No mastoid effusion. Orbits: Unremarkable. Soft tissues: Unremarkable. IMPRESSION: No evidence of acute infarct. Electronically signed by: Kathy Hernandez On 09/08/2019 16:04:31 PM
--- NOTE | 2019-09-08 16:15 | REPVR ---
PROCEDURE INFORMATION: Exam: MR Angiogram Head Without Contrast, Arteries Exam date and time: 09/08/2019 3:25 PM Age: 59 years old Clinical indication: Vertigo TECHNIQUE: Imaging protocol: MR angiogram head without contrast. Exam focused on the arteries. COMPARISON: No relevant prior studies available. FINDINGS: Anterior cerebral arteries: Intracranial segment is patent with no significant stenosis. No aneurysm. Right internal carotid artery: Intracranial segment is patent with no significant stenosis. No aneurysm. Right middle cerebral artery: No occlusion or significant stenosis. No aneurysm. Right posterior cerebral artery: No occlusion or significant stenosis. No aneurysm. Right vertebral artery: No occlusion or significant stenosis. No aneurysm. Left internal carotid artery: Intracranial segment is patent with no significant stenosis. There is a 1-2 mm laterally directed outpouching from the cavernous segment of the left ICA consistent with a tiny aneurysm. Left middle cerebral artery: No occlusion or significant stenosis. No aneurysm. Left posterior cerebral artery: No occlusion or significant stenosis. No aneurysm. Left vertebral artery: No occlusion or significant stenosis. No aneurysm. Basilar artery: No occlusion or significant stenosis. No aneurysm. IMPRESSION: No major proximal vessel branch occlusion or proximal intracranial arterial stenosis seen. Tiny left ICA cavernous aneurysm. Electronically signed by: Kathy Hernandez On 09/08/2019 16:14:38 PM
[2019-09-08 16:30] VITALS: BP 128/95
--- NOTE | 2019-09-08 20:28 | ECGEPIP ---
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
--- NOTE | 2019-09-10 07:18 | ED PDOC ---
Post-Departure Follow-Up [facility] faxed formal report to dr victoria for Melonie Khan MD Sep 10, 2019 07:18
== END 2019-09-08 16:48 | disposition home or self-care (01) ==
LOC: M ED 08:53
DX: H81.09 Meniere's disease, unspecified ear (principal); I10 Essential (primary) hypertension; K21.9 Gastro-esophageal reflux disease without esophagitis; E07.9 Disorder of thyroid, unspecified; F41.9 Anxiety disorder, unspecified; F32.9 Major depressive disorder, single episode, unspecified; Z79.899 Other long term (current) drug therapy
CPT/HCPCS: 70544; 70551; 80047; 80076; 83690; 85027; 93005; 96361; 96374; 96375; 97112; 97161; 99285; J2405; J3360

== ENCOUNTER 2019-09-10 03:45 | Inpatient (IN) | payer BC, OTHER ==
[~2019-09-10] VITALS: Ht 162.6 cm; Wt 80.4 kg
[~2019-09-10 03:45] MED LIST changes: +ESCI20TA PO; -ESCI20TA16 PO; -GABA-282; +GABA-843; +rolling walker
[2019-09-10] MEDS ORDERED: NS 1,000 ML IV ONE ×2 (04:15→07:00)
[2019-09-10] MEDS ORDERED: diazePAM 10MG/2ML SYRINGE (J3360 PER 5MG) IV ONE (04:15)
[2019-09-10] MEDS ORDERED: ONDANSETRON 4MG/2ML VIAL IV ONE (04:15)
[2019-09-10 04:41] LABS: BASO # 0.1 10^3/uL (0.0-0.2); BASO % 0.4 % (0.0-1.0); EOS # 0.1 10^3/uL (0.0-0.5); EOS % 0.6 % (0.0-3.0); HEMATOCRIT 39.5 % (36.0-47.0); LYMPH # 1.9 10^3/uL (1.5-5.0); LYMPH % 16.3 % (24.0-44.0); MEAN CORPUSCULAR HEMOGLOBIN 30.4 pg (27.0-33.0); MEAN CORPUSCULAR HGB CONC 32.9 g/dl (32.0-36.5); MEAN CORPUSCULAR VOLUME 92.3 fl (80.0-96.0); MONO # 0.5 10^3/uL (0.0-0.8); NEUTROPHILS # 8.9 10^3/uL (1.5-8.5); NEUTROPHILS % 78.2 % (36.0-66.0); PLATELET COUNT, AUTOMATED 294 10^3/uL (150-450); RED BLOOD COUNT 4.28 10^6/uL (4.00-5.40); WHITE BLOOD COUNT 11.4 10^3/uL (4.0-10.0)
[2019-09-10 04:58] LABS: ALBUMIN 3.9 GM/DL (3.2-5.2); BILIRUBIN,DIRECT 0.1 MG/DL (0.0-0.2); BILIRUBIN,TOTAL 0.7 MG/DL (0.2-1.0); CREATININE FOR GFR 1.08 MG/DL (0.55-1.30); GLOMERULAR FILTRATION RATE 55.7 (>51); TOTAL PROTEIN 7.7 GM/DL (6.4-8.2)
[2019-09-10] MEDS ORDERED: POTASSIUM CHLORIDE 10 MEQ SR TABLET PO ONE (05:15)
[2019-09-10] MEDS: GASTROGRAFIN SOLUTION 30ML PO SCH ×2 (06:09→06:25)
[2019-09-10] MEDS ORDERED: ISOVUE-370 76% 100ML VIAL As Ordered ONE (07:20)
--- NOTE | 2019-09-10 08:23 | REPVR ---
PROCEDURE INFORMATION: Exam: CT Abdomen And Pelvis With Contrast Exam date and time: 09/10/2019 7:49 AM Age: 59 years old Clinical indication: Abdominal pain; Generalized; Additional info: Gen abd pain, vomiting TECHNIQUE: Imaging protocol: Computed tomography of the abdomen and pelvis with intravenous contrast. Radiation optimization: All CT scans at this facility use at least one of these dose optimization techniques: automated exposure control; mA and/or kV adjustment per patient size (includes targeted exams where dose is matched to clinical indication); or iterative reconstruction. Contrast material: ISOVUE 370; Contrast volume: 100 ml; Contrast route: IV; Other contrast: Oral, Gastrographin, 10ml Gastro to 290 water x 2; COMPARISON: CT ABD/PEL W/IV CONTRAST ONLY 12/01/2017 8:18 PM FINDINGS: Liver: Mild diffuse fatty infiltration of the liver is present. Gallbladder and bile ducts: Prior cholecystectomy. The biliary ducts appear normal. Pancreas: Normal. No ductal dilation. Spleen: Normal. No splenomegaly. Adrenals: Normal. No mass. Kidneys and ureters: Normal. No hydronephrosis. Stomach and bowel: Questionable mild acute colitis. There is abnormal patchy hypodense mucosal thickening present in the large bowel extending from the proximal ascending colon to the sigmoid and rectosigmoid area. No evidence of megacolon or colonic perforation, however. No evidence of severe ileus or bowel obstruction. The stomach and duodenum appear normal. The distal small bowel is unremarkable. Appendix: No evidence of appendicitis. Intraperitoneal space: Unremarkable. No free air. No significant fluid collection. Vasculature: Unremarkable. No abdominal aortic aneurysm. Lymph nodes: Unremarkable. No enlarged lymph nodes. Bladder: Unremarkable as visualized. Reproductive: Unremarkable as visualized. Bones/joints: Unremarkable. No acute fracture. Soft tissues: A tiny periumbilical midline ventral hernia is present, containing fat only. IMPRESSION: 1. Questionable mild acute colitis. There is abnormal patchy hypodense mucosal thickening present in the large bowel extending from the proximal ascending colon to the sigmoid and rectosigmoid area. No evidence of megacolon or colonic perforation, however. No evidence of severe ileus or bowel obstruction. The stomach and duodenum appear normal. The distal small bowel is unremarkable. 2. Mild diffuse fatty infiltration of the liver is present. 3. Prior cholecystectomy. The biliary ducts appear normal. 4. A tiny periumbilical midline ventral hernia is present, containing fat only. Electronically signed by: Clifton Nguyen On 09/10/2019 08:23:07 AM
[2019-09-10] MEDS ORDERED: VENL75CA2 PO (08:46)
[2019-09-10] MEDS ORDERED: VITA50005 PO (08:46)
--- NOTE | 2019-09-10 08:56 | ECGEPIP ---
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
[2019-09-10] MEDS: NS 1,000 ML IV SCH ×2 (09:00→21:18)
[2019-09-10] MEDS ORDERED: atenoloL 50 MG TAB PO SCH (09:00)
[2019-09-10 09:11] LABS: MAGNESIUM LEVEL 1.9 MG/DL (1.8-2.4)
[2019-09-10 11:48] VITALS: BP 147/75
[2019-09-10] MEDS: LEVOTHYROXINE 100MCG TABLET (0.1MG) PO SCH (11:54)
[2019-09-10 12:40] LABS: FREE THYROXINE INDEX 3.4 % (1.3-4.8); THYROID STIMULATING HORMONE 3.55 uIU/ML (0.358-3.740)
--- NOTE | 2019-09-10 12:45 | HPEPDOC ---
[facility] Medical History & Physical Date of Admission Sep 10, 2019 Date of Service: Sep 10, 2019 History and Physical CHIEF COMPLAINT: dizziness, vomiting HISTORY OF PRESENT ILLNESS: 59 yo female presents for several day history of worsening abdominal pain, dizziness and vomiting. PHx of Menieres disease, but has had no flare ups or follow up in several years. She was following with ENT from [place] who had office hours in [place]. Denies chest pain, shortness of breath, diarrhea. PAST MEDICAL HISTORY: #HTN #Meniere's disease ALLERGIES: Please see below. REVIEW OF SYSTEMS: Negative except as per HPI. HOME MEDICATIONS: Please see below. PHYSICAL EXAMINATION: VITAL SIGNS: See below General: NAD, lying comfortably in bed HEENT: NC/AT, EOMI Lungs: CTA B/L Heart; +S1S2, RRR Abd: soft, NT, +BS Ext: no edema LABORATORY DATA: See below. MICROBIOLOGY: Please see below. ASSESSMENT: 59 yo female with PMHx of Meniere's disease presents for several day history of worsening abdominal pain, dizziness and vomiting. #abdominal pain - CT findings of colitis - IV fluids, abx - clear liquid diet #Meniere's/dizziness/vomiting - possibly exacerbation secondary to colitis - symptom control for now - if no improvement consider neurology c/s #sinus bradycardia - hold parameters with home BB #DVT prophylaxis Vital Signs Vital Signs Date Time Temp Pulse Resp B/P (MAP) Pulse Ox O2 Delivery O2 Flow Rate FiO2 09/10/19 11:48 98.9 55 18 147/75 (99) 98 Room Air Laboratory Data Labs 24H Laboratory Tests 2 09/10/19 04:11: Immature Granulocyte % (Auto) 0.5, Neutrophils (%) (Auto) 78.2H, Lymphocytes (%) (Auto) 16.3L, Monocytes (%) (Auto) 4.0, Eosinophils (%) (Auto) 0.6, Basophils (%) (Auto) 0.4, Neutrophils # (Auto) 8.9H, Lymphocytes # (Auto) 1.9, Monocytes # (Auto) 0.5, Eosinophils # (Auto) 0.1, Basophils # (Auto) 0.1, Nucleated Red Blood Cells % (auto) 0.0, Anion Gap 16, Glomerular Filtration Rate 55.7, Calcium Level 9.0, Magnesium Level 1.9, Total Bilirubin 0.7, Direct Bilirubin 0.1, Aspartate Amino Transf (AST/SGOT) 20, Alanine Aminotransferase (ALT/SGPT) 23, Alkaline Phosphatase 100, Total Protein 7.7, Albumin 3.9, Albumin/Globulin Ratio 1.0L, Lipase 183, Thyroid Stimulating Hormone (TSH) 3.550, Free Thyroxine Index 3.4, Thyroxine (T4) 10.0, Triiodothyronine (T3) Uptake 34 CBC/BMP Laboratory Tests 09/10/19 04:11 Home Medications Scheduled Atenolol (Atenolol) 50 Mg Tab, 50 MG PO DAILY Ergocalciferol (Vitamin D2) (Vitamin D2) 50,000 Units Cap, 50,000 UNITS PO Q2WK EVERY OTHER SUNDAY Levothyroxine Sodium (Levothyroxine Sodium) 100 Mcg Tab, 100 MCG PO DAILY Lisinopril/Hydrochlorothiazide (Lisinopril-Hctz 20-25 mg Tab) 1 Tab Tab, 1 TAB PO DAILY Omeprazole (Omeprazole) 40 Mg Cap, 40 MG PO DAILY Venlafaxine HCl (Venlafaxine HCl ER) 75 Mg Cap.er.24h, 225 MG PO QHS Allergies Coded Allergies: No Known Allergies (Unverified , 06/29/16) A-FIB/CHADSVASC A-FIB History Current/History of A-Fib/PAF?: No NILA BEACH MD Sep 10, 2019 12:45
[2019-09-10] MEDS: CIPROFLOXACIN 400 MG in IV 1 EA IV SCH (13:22)
[2019-09-10] MEDS: OMEPRAZOLE 20 MG CAP PO SCH (13:23)
[2019-09-10] MEDS: ENOXAPARIN 40MG/0.4ML SYRINGE (J1650 PER 10MG) SC SCH (13:23)
[2019-09-10] MEDS: lisinopriL 20 MG TAB PO SCH (13:24)
[2019-09-10] MEDS: metroNIDAZOLE 500 MG in IV 1 EA IV SCH ×2 (15:18→21:18)
[2019-09-10] MEDS: ACETAMINOPHEN TAB 650MG DOSE (2X325MG) PO PRN (17:26)
[2019-09-10] MEDS: VENLAFAXINE **XR** 75MG CAPSULE PO SCH (21:18)
[2019-09-10 22:00] VITALS: BP 148/76
[2019-09-11 06:00] VITALS: BP 144/90
[2019-09-11] MEDS: metroNIDAZOLE 500 MG in IV 1 EA IV SCH ×3 (06:04→21:26)
[2019-09-11] MEDS: LEVOTHYROXINE 100MCG TABLET (0.1MG) PO SCH (06:04)
[2019-09-11 06:23] LABS: HEMATOCRIT 33.7 % (36.0-47.0); HEMOGLOBIN 11.3 g/dl (12.0-15.5); MEAN CORPUSCULAR HEMOGLOBIN 31.6 pg (27.0-33.0); MEAN CORPUSCULAR HGB CONC 33.5 g/dl (32.0-36.5); MEAN CORPUSCULAR VOLUME 94.1 fl (80.0-96.0); PLATELET COUNT, AUTOMATED 261 10^3/uL (150-450); RED BLOOD COUNT 3.58 10^6/uL (4.00-5.40); WHITE BLOOD COUNT 7.9 10^3/uL (4.0-10.0)
[2019-09-11 06:53] LABS: ALT/SGPT 23 U/L (12-78); BILIRUBIN,TOTAL 0.8 MG/DL (0.2-1.0); BLOOD UREA NITROGEN 5 MG/DL (7-18); CARBON DIOXIDE LEVEL 27 MEQ/L (21-32); CHLORIDE LEVEL 112 MEQ/L (98-107); CREATININE FOR GFR 0.66 MG/DL (0.55-1.30); GLOMERULAR FILTRATION RATE > 60.0 (>51); GLUCOSE, FASTING 98 MG/DL (70-100); POTASSIUM SERUM 3.9 MEQ/L (3.5-5.1); SODIUM LEVEL 146 MEQ/L (136-145); TOTAL PROTEIN 5.9 GM/DL (6.4-8.2)
[2019-09-11] MEDS: ENOXAPARIN 40MG/0.4ML SYRINGE (J1650 PER 10MG) SC SCH (08:48)
[2019-09-11] MEDS: OMEPRAZOLE 20 MG CAP PO SCH (08:50)
[2019-09-11] MEDS: lisinopriL 20 MG TAB PO SCH (08:50)
--- NOTE | 2019-09-11 08:51 | ECGEPIP ---
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
[2019-09-11] MEDS: NS 1,000 ML IV SCH ×2 (10:47→21:27)
--- NOTE | 2019-09-11 12:40 | IPNPDOC ---
Text Note Date of Service The patient was seen on 09/11/19. NOTE Subjective: Patient seen and examined at bedside. Overnight some concerns regarding bradycardia, difficult to assess if she was truly symptomatic. She denies shortness of breath or chest pain. THis morning she states she is feeling better. Objective: VITAL SIGNS: See below General: NAD, lying comfortably in bed HEENT: NC/AT, EOMI Lungs: CTA B/L Heart; +S1S2, RRR Abd: soft, NT, +BS Ext: no edema LABORATORY DATA: See below. MICROBIOLOGY: Please see below. ASSESSMENT: 59 yo female with PMHx of Meniere's disease presents for several day history of worsening abdominal pain, dizziness and vomiting. #abdominal pain - CT findings of colitis - IV fluids, abx - clear liquid diet #Meniere's/dizziness/vomiting - possibly exacerbation secondary to colitis - symptom control for now - if no improvement consider neurology c/s #sinus bradycardia - dc home BB - ECG shows sinus glenn, tele shows lowest rate at 47 bpm - patient unaware of any issues with bradycardia #DVT prophylaxis VS,Fishbone, I+O VS, Fishbone, I+O Laboratory Tests 09/11/19 05:57 Vital Signs Date Time Temp Pulse Resp B/P (MAP) Pulse Ox O2 Delivery O2 Flow Rate FiO2 09/11/19 08:50 153/90 09/11/19 06:00 98.4 56 17 96 Room Air I&O- Last 24 Hours up to 6 AM 09/11/19 06:00 Intake Total 3370 ml Output Total 1450 ml Balance 1920 ml NILA BEACH MD Sep 11, 2019 12:40
[2019-09-11] MEDS: CIPROFLOXACIN 400 MG in IV 1 EA IV SCH ×3 (13:32)
[2019-09-11 14:00] VITALS: BP 140/86
[2019-09-11] MEDS: ACETAMINOPHEN TAB 650MG DOSE (2X325MG) PO PRN ×3 (15:26→22:09)
[2019-09-11] MEDS ORDERED: diazePAM 5 MG TAB PO PRN (15:30)
[2019-09-11] MEDS ORDERED: PILL CUTTER 1 EACH XX PRN (15:30)
[2019-09-11] MEDS ORDERED: ONDANSETRON 4MG/2ML VIAL IV PRN (15:45)
[2019-09-11] MEDS: VENLAFAXINE **XR** 75MG CAPSULE PO SCH (21:27)
[2019-09-11 22:00] VITALS: BP 153/91
[2019-09-12] MEDS: CIPROFLOXACIN 400 MG in IV 1 EA IV SCH ×2 (01:05→13:06)
[2019-09-12 02:00] VITALS: BP 154/91
[2019-09-12] MEDS: LEVOTHYROXINE 100MCG TABLET (0.1MG) PO SCH (05:42)
[2019-09-12] MEDS: metroNIDAZOLE 500 MG in IV 1 EA IV SCH ×3 (05:42→21:31)
[2019-09-12 06:00] VITALS: BP 146/89
[2019-09-12 08:13] LABS: HEMATOCRIT 35.1 % (36.0-47.0); HEMOGLOBIN 11.7 g/dl (12.0-15.5); MEAN CORPUSCULAR HEMOGLOBIN 30.8 pg (27.0-33.0); MEAN CORPUSCULAR HGB CONC 33.3 g/dl (32.0-36.5); MEAN CORPUSCULAR VOLUME 92.4 fl (80.0-96.0); PLATELET COUNT, AUTOMATED 274 10^3/uL (150-450)
[2019-09-12 08:41] LABS: ALBUMIN 3.2 GM/DL (3.2-5.2); ALT/SGPT 22 U/L (12-78); BILIRUBIN,TOTAL 0.8 MG/DL (0.2-1.0); BLOOD UREA NITROGEN 3 MG/DL (7-18); CALCIUM LEVEL 8.1 MG/DL (8.5-10.1); CARBON DIOXIDE LEVEL 28 MEQ/L (21-32); CHLORIDE LEVEL 108 MEQ/L (98-107); CREATININE FOR GFR 0.79 MG/DL (0.55-1.30); GLOMERULAR FILTRATION RATE > 60.0 (>51); GLUCOSE, FASTING 125 MG/DL (70-100); POTASSIUM SERUM 3.4 MEQ/L (3.5-5.1); SODIUM LEVEL 143 MEQ/L (136-145); TOTAL PROTEIN 6.2 GM/DL (6.4-8.2)
[2019-09-12] MEDS: lisinopriL 20 MG TAB PO SCH (09:32)
[2019-09-12] MEDS: ENOXAPARIN 40MG/0.4ML SYRINGE (J1650 PER 10MG) SC SCH (09:32)
[2019-09-12] MEDS: OMEPRAZOLE 20 MG CAP PO SCH (09:32)
[2019-09-12] MEDS: NS 1,000 ML IV SCH (09:45)
[2019-09-12] MEDS ORDERED: POTASSIUM CHLORIDE 10 MEQ SR TABLET PO ONE (10:45)
[2019-09-12 10:57] LABS: MAGNESIUM LEVEL 1.9 MG/DL (1.8-2.4)
--- NOTE | 2019-09-12 10:58 | IPNPDOC ---
Text Note Date of Service The patient was seen on 09/12/19. NOTE Subjective: Patient seen and examined at bedside. No new medical complaints. 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 This morning she states she feels well, but still some intermittent episodes of dizziness. Objective: VITAL SIGNS: See below General: NAD, lying comfortably in bed HEENT: NC/AT, EOMI Lungs: CTA B/L Heart; +S1S2, RRR Abd: soft, NT, +BS Ext: no edema LABORATORY DATA: See below. MICROBIOLOGY: Please see below. ASSESSMENT: 59 yo female with PMHx of Meniere's disease presents for several day history of worsening abdominal pain, dizziness and vomiting. #abdominal pain - much improved - CT findings of colitis - iv Abx, advance as tolerated #Meniere's/dizziness/vomiting - possibly exacerbation secondary to colitis - symptom control for now - discussed with neurology - assistance appreciated - trial of valium for symptom control - d/w ENT Dr. Coleman - assistance appreciated - low sodium diet, low dose diuretic, valium #arrhythmia - echo pending - dc home BB - patient unaware of any issues with bradycardia - telemetry monitoring #DVT prophylaxis VS,Fishbone, I+O VS, Fishbone, I+O Laboratory Tests 09/12/19 07:49 Vital Signs Date Time Temp Pulse Resp B/P (MAP) Pulse Ox O2 Delivery O2 Flow Rate FiO2 09/12/19 09:32 152/96 09/12/19 06:00 98.2 55 19 96 Room Air I&O- Last 24 Hours up to 6 AM 09/12/19 06:00 Intake Total 4600 ml Output Total 3675 ml Balance 925 ml NILA BEACH MD Sep 12, 2019 10:58
[2019-09-12 14:00] VITALS: BP 141/80
--- NOTE | 2019-09-12 16:24 | ECHO ---
DATE OF STUDY: 09/12/2019 REFERRING PHYSICIAN: Dr. Kwesi Moy INDICATION: Cardiac dysrhythmia, unspecified. HEIGHT: 163 cm WEIGHT: 80 kg 2-D MEASUREMENTS: Left atrium: 3.6 cm Aortic root: 3.0 cm Ventricular septum: 1.02 cm Posterior wall: 0.99 cm Left ventricle diastole: 5.2 cm LVOT: 2.1 cm Inferior vena cava: 1.6 cm DOPPLER MEASUREMENTS: No aortic stenosis. No aortic regurgitation. Aortic valve velocity: 159 cm/sec LVOT velocity: 103 cm/sec LVOT VTI: 17.4 cm No mitral stenosis. No mitral regurgitation. Mitral E velocity: 74.9 cm/sec Mitral A velocity: 64.5 cm/sec Mitral deceleration time: 236 ms Trace tricuspid regurgitation. No pulmonic regurgitation. Pulmonary artery acceleration time: 95 ms MITRAL ANNULAR TISSUE DOPPLER E prime septal: 8.3 cm/sec DESCRIPTION: Rhythm was sinus with frequent PVCs. This was a 2-D, M-mode, color flow Doppler and pulsed wave Doppler examination and included mitral annular tissue Doppler. Image quality was fair. No pericardial effusion. CONCLUSIONS: 1. Normal left ventricular internal dimensions and wall thickness. Normal regional wall motion and wall thickening. Normal LV systolic function. Left ventricular ejection fraction (LVEF) 65% by visual estimate. Normal LV diastolic function. 2. Otherwisek, normal-appearing echocardiogram-Doppler findings.
[2019-09-12] MEDS: SPIRONOLACTONE 12.5MG PER 1/2 TABLET PO SCH (18:07)
[2019-09-12] MEDS: DOCUSATE SODIUM 100 MG CAP PO PRN (18:55)
[2019-09-12] MEDS: SENNA 8.6 MG TAB (SENOKOT) PO PRN (18:55)
[2019-09-12] MEDS: VENLAFAXINE **XR** 75MG CAPSULE PO SCH (21:30)
--- NOTE | 2019-09-12 21:30 | ECGEPIP ---
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 Electronically Signed on 09-12-2019 21:29:47 EDT by Darius Rogers
[2019-09-12 22:00] VITALS: BP_SYST 117; BP_SYST 160; BP_DIAS 108; BP_DIAS 72
[2019-09-12] MEDS ORDERED: RAMELTEON 8 MG TAB (ROZEREM) PO PRN (22:00)
[2019-09-12 23:40] VITALS: BP 170/110
[2019-09-12] MEDS ORDERED: **hydrALAZINE** 10 MG TAB PO PRN (23:45)
[2019-09-13 01:00] VITALS: BP 148/98
[2019-09-13] MEDS: CIPROFLOXACIN 400 MG in IV 1 EA IV SCH ×2 (01:10→13:00)
[2019-09-13] MEDS: metroNIDAZOLE 500 MG in IV 1 EA IV SCH ×2 (05:33→13:50)
[2019-09-13] MEDS: LEVOTHYROXINE 100MCG TABLET (0.1MG) PO SCH (05:33)
[2019-09-13 06:00] VITALS: BP 144/79
[2019-09-13 07:18] LABS: HEMATOCRIT 36.6 % (36.0-47.0); HEMOGLOBIN 12.3 g/dl (12.0-15.5); MEAN CORPUSCULAR HEMOGLOBIN 31.3 pg (27.0-33.0); MEAN CORPUSCULAR HGB CONC 33.6 g/dl (32.0-36.5); MEAN CORPUSCULAR VOLUME 93.1 fl (80.0-96.0); PLATELET COUNT, AUTOMATED 311 10^3/uL (150-450); RED BLOOD COUNT 3.93 10^6/uL (4.00-5.40); WHITE BLOOD COUNT 8.7 10^3/uL (4.0-10.0)
[2019-09-13 07:47] LABS: BLOOD UREA NITROGEN 8 MG/DL (7-18); CALCIUM LEVEL 8.5 MG/DL (8.5-10.1); CARBON DIOXIDE LEVEL 28 MEQ/L (21-32); CHLORIDE LEVEL 106 MEQ/L (98-107); GLOMERULAR FILTRATION RATE > 60.0 (>51); GLUCOSE, FASTING 98 MG/DL (70-100); POTASSIUM SERUM 3.9 MEQ/L (3.5-5.1); SODIUM LEVEL 142 MEQ/L (136-145)
[2019-09-13] MEDS: ENOXAPARIN 40MG/0.4ML SYRINGE (J1650 PER 10MG) SC SCH (09:00)
[2019-09-13 09:37] VITALS: BP 144/79
[2019-09-13] MEDS: lisinopriL 20 MG TAB PO SCH (09:37)
[2019-09-13] MEDS: SENNA 8.6 MG TAB (SENOKOT) PO PRN (09:37)
[2019-09-13] MEDS: SPIRONOLACTONE 12.5MG PER 1/2 TABLET PO SCH ×2 (09:37→17:40)
[2019-09-13] MEDS: DOCUSATE SODIUM 100 MG CAP PO PRN (09:37)
[2019-09-13] MEDS: OMEPRAZOLE 20 MG CAP PO SCH (09:37)
--- NOTE | 2019-09-13 11:53 | DS.PDOC ---
Discharge Summary General Date of Admission Sep 11, 2019 at 15:30 Date of Discharge 09/13/19 Time of service 920am Primary Care Physician: Tracie Mariscal MD Attending Physician: RAFFY STEVE MD Discharge Summary PROCEDURES PERFORMED DURING STAY: [None]. ADMITTING DIAGNOSES: 1. Abdominal pain 2/2 colitis 2. Meniere's/dizziness/vomiting 3. Sinus bradycardia DISCHARGE DIAGNOSES: 1. Abdominal pain 2/2 colitis 2. Meniere's/dizziness/vomiting 3. Sinus bradycardia COMPLICATIONS/CHIEF COMPLAINT: Intractable Vomiting. HISTORY OF PRESENT ILLNESS: Per HPI this 59 yo female presents for several day history of worsening abdominal pain, dizziness and vomiting. PHx of Menieres disease, but has had no flare ups or follow up in several years. She was following with ENT from [facility] who had office hours in [place]. Denies chest pain, shortness of breath, diarrhea. HOSPITAL COURSE: She was admitted to the medical floor, her abdominal pain which may have been due to colitis improved with ciprofloxacin and metronidazole. For Meniere's talked with the Neurologist clearing distribution clerk who recommended a trail of valium. also discussed the case with Dr. ENT Dr. Coleman who recommended a low sodium diet, low dose diuretic, and valium. She was noted to have an arrhythmia therefore an Echo cardiogram was ordered which showed a normal EF and no acute structural issues. She was noted to be bradycardic as low as 45 BPM therefore her atenolol was discontinued during her hospital stay. DISCHARGE MEDICATIONS: Please see below. ALLERGIES: Please see below. PHYSICAL EXAMINATION ON DISCHARGE: VITAL SIGNS: Please see below. GENERAL: NAD HEENT: NACT CARDIOVASCULAR EXAMINATION: RRR/NMRG RESPIRATORY EXAMINATION: CTAB on RA ABDOMINAL EXAMINATION: soft & NT EXTREMITIES: EVIE x 4 NEUROLOGICAL EXAMINATION: CN 2-12 grossly intact / speech not dysarthric PSYCHIATRIC EXAMINATION: A&Ox3 LABORATORY DATA: Please see below. IMAGING: CT abdomen/pelvis IMPRESSION: 1. Questionable mild acute colitis. There is abnormal patchy hypodense mucosal thickening present in the large bowel extending from the proximal ascending colon to the sigmoid and rectosigmoid area. No evidence of megacolon or colonic perforation, however. No evidence of severe ileus or bowel obstruction. The stomach and duodenum appear normal. The distal small bowel is unremarkable. 2. Mild diffuse fatty infiltration of the liver is present. 3. Prior cholecystectomy. The biliary ducts appear normal. 4. A tiny periumbilical midline ventral hernia is present, containing fat only. Echo CONCLUSIONS: 1. Normal left ventricular internal dimensions and wall thickness. Normal regional wall motion and wall thickening. Normal LV systolic function. Left ventricular ejection fraction (LVEF) 65% by visual estimate. Normal LV diastolic function. 2. Otherwisek, normal-appearing echocardiogram- Doppler findings. PROGNOSIS: fair ACTIVITY: [As tolerated]. DIET: low salt DISCHARGE PLAN: see instructions below DISPOSITION: home DISCHARGE INSTRUCTIONS: 1. Please follow up with your PCP to discuss if outpatient Neurology and ENT referral are warranted ITEMS TO FOLLOWUP ON OUTPATIENT: 1. Response of dizziness to valium 2. Resolution of abdominal pain/colitis 3. Blood pressure with change in meds DISCHARGE CONDITION: [Stable]. TIME SPENT ON DISCHARGE: Greater than 25 minutes. Vital Signs/I&Os Vital Signs Date Time Temp Pulse Resp B/P (MAP) Pulse Ox O2 Delivery O2 Flow Rate FiO2 09/13/19 09:37 144/79 09/13/19 06:00 98.9 55 6 98 Room Air I&O- Last 24 Hours up to 6 AM 09/13/19 05:59 Intake Total 3890 ml Output Total 2250 ml Balance 1640 ml Laboratory Data Labs 24H Laboratory Tests 2 09/13/19 06:33: Nucleated Red Blood Cells % (auto) 0.0, Anion Gap 8, Glomerular Filtration Rate > 60.0, Calcium Level 8.5 CBC/BMP Laboratory Tests 09/13/19 06:33 Discharge Medications Scheduled Ergocalciferol (Vitamin D2) (Vitamin D2) 50,000 Units Cap, 50,000 UNITS PO Q2WK, (Reported) EVERY OTHER SUNDAY Levothyroxine Sodium (Levothyroxine Sodium) 100 Mcg Tab, 100 MCG PO DAILY, (Reported) Lisinopril/Hydrochlorothiazide (Lisinopril-Hctz 20-25 mg Tab) 1 Tab Tab, 1 TAB PO DAILY, (Reported) Metronidazole (Metronidazole) 375 Mg Capsule, 1 CAP PO BID Omeprazole (Omeprazole) 40 Mg Cap, 40 MG PO DAILY, (Reported) Spironolactone (Aldactone) 25 Mg Tablet, 12.5 MG PO BID@0900,1700 Venlafaxine HCl (Venlafaxine HCl ER) 75 Mg Cap.er.24h, 225 MG PO QHS, (Reported) Scheduled PRN Diazepam (Diazepam) 5 Mg Tablet, 2.5 MG PO Q12HP PRN for ANXIETY Allergies Coded Allergies: No Known Allergies (Unverified , 06/29/16) RAFFY STEVE MD Sep 13, 2019 11:53
[2019-09-13] MEDS ORDERED: DIAZ5TAB PO (12:11)
[2019-09-13] MEDS ORDERED: METR375C3 PO (12:17)
[2019-09-13] MEDS ORDERED: ALDA25TA2 PO (12:18)
[2019-09-13] MEDS ORDERED: ONDA4TAB6 PO (16:08)
[2019-09-13] MEDS ORDERED: METR-265 PO (17:34)
[2019-09-13] MEDS ORDERED: metroNIDAZOLE (FLAGYL) 500 MG TAB PO ONE (18:00)
== END 2019-09-13 18:40 | disposition home or self-care (01) | DRG 249 ==
LOC: M ED 03:45 → M ED INP 03:46 → ENRESERV 10:58 → M MSPAV 11:31 → OBSVTOIN 09-11 15:30
PROVIDERS: ADMIT Internal Medicine; ATTEND Internal Medicine
DX: K52.9 Noninfective gastroenteritis and colitis, unspecified (principal); H81.09 Meniere's disease, unspecified ear; R00.1 Bradycardia, unspecified; Z79.899 Other long term (current) drug therapy

== ENCOUNTER 2019-09-24 17:25 | Emergency (ER) | payer BC, OTHER ==
[~2019-09-24] VITALS: Ht 162.6 cm; Wt 78.4 kg
[~2019-09-24 17:25] MED LIST changes: +ALDA25TA2 PO; +DIAZ5TAB PO; +METR-265 PO; +METR375C3 PO; +ONDA4TAB6 PO; +VENL75CA2 PO; +VITA50005 PO
[2019-09-24] MEDS ORDERED: LISI30TA4 (17:45)
[2019-09-24] MEDS ORDERED: SPIR-10 (17:45)
[2019-09-24] MEDS ORDERED: SPIR1TAB34 (17:52)
[2019-09-24 18:35] LABS: BASO # 0.1 10^3/uL (0.0-0.2); BASO % 0.4 % (0.0-1.0); EOS % 0.3 % (0.0-3.0); HEMATOCRIT 41.2 % (36.0-47.0); HEMOGLOBIN 13.7 g/dl (12.0-15.5); LYMPH # 1.4 10^3/uL (1.5-5.0); MEAN CORPUSCULAR HEMOGLOBIN 31.4 pg (27.0-33.0); MEAN CORPUSCULAR HGB CONC 33.3 g/dl (32.0-36.5); MEAN CORPUSCULAR VOLUME 94.3 fl (80.0-96.0); MONO # 0.8 10^3/uL (0.0-0.8); MONO % 6.4 % (0.0-5.0); NEUTROPHILS # 9.5 10^3/uL (1.5-8.5); NEUTROPHILS % 80.1 % (36.0-66.0); PLATELET COUNT, AUTOMATED 357 10^3/uL (150-450); RED BLOOD COUNT 4.37 10^6/uL (4.00-5.40); WHITE BLOOD COUNT 11.8 10^3/uL (4.0-10.0)
[2019-09-24 19:05] LABS: ALBUMIN 3.7 GM/DL (3.2-5.2); ALT/SGPT 32 U/L (12-78); BILIRUBIN,DIRECT 0.2 MG/DL (0.0-0.2); BILIRUBIN,TOTAL 0.8 MG/DL (0.2-1.0); BLOOD UREA NITROGEN 23 MG/DL (7-18); CALCIUM LEVEL 9.1 MG/DL (8.5-10.1); CARBON DIOXIDE LEVEL 28 MEQ/L (21-32); CHLORIDE LEVEL 101 MEQ/L (98-107); CK-MB VALUE MASS 1.3 NG/ML (<3.6); CPK CREATINE PHOSPHOKINASE 101 U/L (26-192); CREATININE FOR GFR 1.32 MG/DL (0.55-1.30); FREE T4 1.13 NG/DL (0.76-1.46); GLOMERULAR FILTRATION RATE 44.2 (>51); GLUCOSE, FASTING 97 MG/DL (70-100); MB/CK RELATIVE INDEX 1.29 (< OR =4); POTASSIUM SERUM 4.4 MEQ/L (3.5-5.1); SODIUM LEVEL 136 MEQ/L (136-145); TOTAL PROTEIN 7.2 GM/DL (6.4-8.2); TROPONIN I < 0.02 NG/ML (< 0.10)
[2019-09-24] MEDS ORDERED: ISOVUE-370 76% 100ML VIAL As Ordered ONE (19:28)
--- NOTE | 2019-09-24 20:46 | REPVR ---
PROCEDURE INFORMATION: Exam: CT Abdomen And Pelvis With Contrast Exam date and time: 09/24/2019 7:48 PM Age: 59 years old Clinical indication: Abdominal pain; Localized; Left lower quadrant (llq); Additional info: Abdominal pain llq, hypotension TECHNIQUE: Imaging protocol: Computed tomography of the abdomen and pelvis with intravenous contrast. Radiation optimization: All CT scans at this facility use at least one of these dose optimization techniques: automated exposure control; mA and/or kV adjustment per patient size (includes targeted exams where dose is matched to clinical indication); or iterative reconstruction. Contrast material: ISOVUE 370; Contrast volume: 100 ml; Contrast route: INTRAVENOUS (IV); COMPARISON: CT ABD/PEL W/IV ORAL CONTRAS 09/10/2019 7:34 AM FINDINGS: Lungs: The lung bases are unremarkable. Liver: There is a diffuse decrease in hepatic parenchymal density, consistent with fatty infiltration. Gallbladder and bile ducts: Cholecystectomy. Pancreas: The pancreas is normal. Spleen: The spleen is normal. Adrenals: The adrenal glands are unremarkable. Kidneys and ureters: The kidneys are normal. Stomach and bowel: There is no evidence of intestinal obstruction. The mild colonic wall thickening seen on the prior study is not apparent on the present examination. Appendix: No evidence of appendicitis. Intraperitoneal space: Unremarkable. No free air. No significant fluid collection. Vasculature: There is no evidence of an infrarenal abdominal aortic aneurysm. The arteries demonstrates diffuse mild atherosclerotic calcification. Lymph nodes: Unremarkable. No enlarged lymph nodes. Bladder: The bladder is unremarkable. Reproductive: Hysterectomy. Bones/joints: No significant skeletal findings. Soft tissues: There is a fat-containing umbilical hernia. IMPRESSION: No acute findings. The diffuse colonic wall thickening with question of colitis at time of prior imaging is no longer apparent. Electronically signed by: Gail Alicea On 09/24/2019 20:46:29 PM
--- NOTE | 2019-09-24 20:52 | REPVR ---
PROCEDURE INFORMATION: Exam: CT Angiography Chest With Contrast Exam date and time: 09/24/2019 7:48 PM Age: 59 years old Clinical indication: Shortness of breath; Additional info: Shortness of breath, hypotension, S/P hospitalization TECHNIQUE: Imaging protocol: Computed tomographic angiography of the chest with intravenous contrast. 3D rendering: MIP and/or 3D reconstructed images were created by the technologist. Radiation optimization: All CT scans at this facility use at least one of these dose optimization techniques: automated exposure control; mA and/or kV adjustment per patient size (includes targeted exams where dose is matched to clinical indication); or iterative reconstruction. Contrast material: ISOVUE 370; Contrast volume: 100 ml; Contrast route: INTRAVENOUS (IV); COMPARISON: CR PORTABLE CHEST X-RAY 09/24/2019 6:16 PM FINDINGS: Pulmonary arteries: No pulmonary arterial emboli. Aorta: There is no aneurysmal dilatation of the thoracic aorta or dissection. Lungs: No lung consolidation. Pleural space: No pleural effusion. Heart: No cardiomegaly or pericardial effusion. Lymph nodes: No mediastinal or hilar lymphadenopathy. Bones/joints: No significant skeletal findings other than mild scoliosis. Soft tissues: Unremarkable. IMPRESSION: No acute findings. Specifically no evidence of pulmonary emboli or pneumonia. Electronically signed by: Gail Alicea On 09/24/2019 20:51:53 PM
[2019-09-24] MEDS ORDERED: NS 1,000 ML IV ONE (21:00)
[2019-09-24 22:57] VITALS: BP 133/90
--- NOTE | 2019-09-25 01:38 | ECGEPIP ---
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
--- NOTE | 2019-09-25 08:25 | REP ---
Clinical: Dizziness . Comparison: 11/16/2011 . Findings: The mediastinum and cardiac silhouette are stable and within normal limits for portable technique. The lung wood are clear without acute consolidation, effusion, or pneumothorax. Skeletal structures are intact. Impression: No acute cardiopulmonary process appreciated. Electronically Signed by Ervin Hawley MD 09/25/2019 08:16 A
== END 2019-09-24 22:59 | disposition home or self-care (01) ==
LOC: EDBD 17:25 → M ED 17:25
DX: N17.9 Acute kidney failure, unspecified (principal); H81.09 Meniere's disease, unspecified ear; I10 Essential (primary) hypertension; Z79.899 Other long term (current) drug therapy
CPT/HCPCS: 36415; 71045; 71275; 74177; 80048; 80076; 82550; 82553; 84439; 84443; 84484; 85025; 93005; 93041; 94760; 96360; 96361; 99285; Q9967

== ENCOUNTER → 2019-09-25 | Outpatient (CLI) | payer BC, OTHER ==
[~2019-09-25] MED LIST changes: -ESCI20TA PO; +ESCI20TA16 PO; +GABA-282; -GABA-843; +LISI30TA4; +SPIR-10; +SPIR1TAB34
[2019-09-25 15:43] LABS: HEMATOCRIT 41.3 % (36.0-47.0); HEMOGLOBIN 13.9 g/dl (12.0-15.5); MEAN CORPUSCULAR HEMOGLOBIN 31.9 pg (27.0-33.0); MEAN CORPUSCULAR HGB CONC 33.7 g/dl (32.0-36.5); MEAN CORPUSCULAR VOLUME 94.7 fl (80.0-96.0); PLATELET COUNT, AUTOMATED 378 10^3/uL (150-450); RED BLOOD COUNT 4.36 10^6/uL (4.00-5.40); WHITE BLOOD COUNT 8.7 10^3/uL (4.0-10.0)
[2019-09-25 16:12] LABS: CALCIUM LEVEL 8.9 MG/DL (8.5-10.1); CREATININE FOR GFR 1.16 MG/DL (0.55-1.30); GLOMERULAR FILTRATION RATE 51.3 (>51); POTASSIUM SERUM 4.6 MEQ/L (3.5-5.1)
== END ==
LOC: M PLALAB 14:55
PROVIDERS: ATTEND Nurse Practitioner Family
DX: N19 Unspecified kidney failure (principal)

== ENCOUNTER → 2019-10-25 | Outpatient (CLI) | payer BC, OTHER ==
[~2019-10-25] MED LIST changes: +ESCI20TA PO; -ESCI20TA16 PO; -GABA-282; +GABA-843
[2019-10-25 18:24] LABS: ALBUMIN 3.5 GM/DL (3.2-5.2); BLOOD UREA NITROGEN 13 MG/DL (7-18); CALCIUM LEVEL 8.7 MG/DL (8.5-10.1); CARBON DIOXIDE LEVEL 30 MEQ/L (21-32); CHLORIDE LEVEL 105 MEQ/L (98-107); CREATININE FOR GFR 0.82 MG/DL (0.55-1.30); GLOMERULAR FILTRATION RATE > 60.0 (>51); GLUCOSE, FASTING 97 MG/DL (70-100); PHOSPHORUS LEVEL 4.2 MG/DL (2.5-4.9); POTASSIUM SERUM 4.2 MEQ/L (3.5-5.1); SODIUM LEVEL 139 MEQ/L (136-145)
== END ==
LOC: M WUC 14:19
PROVIDERS: ATTEND Internal Medicine Cardiovascular Disease
DX: R94.31 Abnormal electrocardiogram [ECG] [EKG] (principal); I10 Essential (primary) hypertension

== ENCOUNTER → 2020-01-30 | Outpatient (CLI) | payer BC ==
--- NOTE | 2020-01-30 15:06 | REPMRS ---
Patient History The patient states she has not had a clinical breast exam in over a year. Family history of colorectal cancer at age 78 in maternal grandmother. Took hormonal contraceptives for 28 years. 3D TOMOSYNTHESIS WAS PERFORMED. [facility] lifetime risk for breast cancer is 8.7%. Volpara breast density b. Digital Woman Screen Mammo: January 30, 2020 - Exam #: [id number] Bilateral CC and MLO view(s) were taken. Technologist: Ruby Gardiner, Technologist Prior study comparison: October 03, 2017, bilateral digital woman screen mammo performed at [facility]. June 16, 2016, digital woman screen mammo performed at [facility]. FINDINGS: The breast tissue is heterogeneously dense. This may lower the sensitivity of mammography. There has been no change in the appearance of the mammogram from the prior studies. There is a moderate amount of residual fibroglandular tissue which is fairly symmetric. There is no interval development of dominant mass, areas of architectural distortion, or clustered microcalcification typical of malignancy. Assessment: BI-RADS/ACR category 1 mammogram. Negative Mammogram. Recommendation Routine screening mammogram in 1 year (for women over age 40). This mammogram was interpreted with the aid of an FDA-approved computer-aided dectection system. Electronically Signed By: Jared Chow MD 01/30/20 [id number]
== END ==
LOC: M WHC 13:45
PROVIDERS: ATTEND Obstetrics & Gynecology
DX: Z12.31 Encounter for screening mammogram for malignant neoplasm of breast (principal); Z92.0 Personal history of contraception

== ENCOUNTER → 2020-02-27 | Outpatient (REF) | payer BC, OTHER ==
[2020-02-27 17:58] LABS: APPEARANCE, URINE HAZY (CLEAR); BACTERIA, URINE AUTO 1+ (NEGATIVE); BILIRUBIN, URINE AUTO NEGATIVE (NEGATIVE); BLOOD, URINE BLOOD NEGATIVE (NEGATIVE); COLOR, URINE AMBER (YELLOW); GLUCOSE, URINE (UA) AUTO NEGATIVE (NEGATIVE); KETONE, URINE AUTO NEGATIVE (NEGATIVE); LEUKOCYTE ESTERASE, URINE AUTO 2+ (NEGATIVE); MUCUS, URINE SMALL (NEGATIVE); NITRITE, URINE AUTO NEGATIVE (NEGATIVE); PROTEIN, URINE AUTO NEGATIVE (NEGATIVE); RBC, URINE AUTO 2 /HPF (0-3); RENAL EPITHELIAL CELLS 1 /HPF; SPECIFIC GRAVITY URINE AUTO 1.024 (1.002-1.035); SQUAMOUS EPITHELIAL CELL UR AU 3 /HPF (0-6); UROBILINOGEN, URINE AUTO 0.2 mg/dL (0.0-2.0); WBC, URINE AUTO 8 /HPF (0-3)
== END ==
LOC: M LAB REF 16:58
PROVIDERS: ATTEND Nurse Practitioner Family
DX: N19 Unspecified kidney failure (principal)

== ENCOUNTER 2020-07-01 20:10 | Emergency (ER) | payer BC, OTHER ==
[~2020-07-01] VITALS: Ht 162.6 cm; Wt 81.1 kg
[~2020-07-01 20:10] MED LIST changes: -ESCI20TA PO; +ESCI20TA16 PO; +GABA-282; -GABA-843
[2020-07-01] MEDS ORDERED: CARV6.25 PO (20:29)
[2020-07-01] MEDS ORDERED: GABA-282 PO (20:29)
[2020-07-01] MEDS ORDERED: NS 1,000 ML IV ONE (21:10)
[2020-07-01] MEDS ORDERED: ONDANSETRON 4MG/2ML VIAL IV ONE (21:10)
[2020-07-01] MEDS: MORPHINE 4 MG/ML 1ML VIAL/SYRINGE (J2270) IV PRN ×2 (21:25→22:22)
[2020-07-01 21:34] LABS: BASO % 0.5 % (0.0-1.0); EOS # 0.1 10^3/uL (0.0-0.5); EOS % 1.1 % (0.0-3.0); HEMATOCRIT 41.2 % (36.0-47.0); HEMOGLOBIN 13.3 g/dl (12.0-15.5); LYMPH # 1.9 10^3/uL (1.5-5.0); LYMPH % 24.4 % (24.0-44.0); MEAN CORPUSCULAR HEMOGLOBIN 30.4 pg (27.0-33.0); MEAN CORPUSCULAR HGB CONC 32.3 g/dl (32.0-36.5); MEAN CORPUSCULAR VOLUME 94.3 fl (80.0-96.0); MONO # 0.5 10^3/uL (0.0-0.8); MONO % 6.1 % (2.0-8.0); NEUTROPHILS # 5.3 10^3/uL (1.5-8.5); NEUTROPHILS % 67.5 % (36.0-66.0); PLATELET COUNT, AUTOMATED 347 10^3/uL (150-450); RED BLOOD COUNT 4.37 10^6/uL (4.00-5.40); WHITE BLOOD COUNT 7.9 10^3/uL (4.0-10.0)
[2020-07-01 21:49] LABS: ALBUMIN 4.1 GM/DL (3.2-5.2); BILIRUBIN,DIRECT 0.1 MG/DL (0.0-0.2); BILIRUBIN,TOTAL 0.7 MG/DL (0.2-1.0); TOTAL PROTEIN 7.7 GM/DL (6.4-8.2)
[2020-07-01 21:51] LABS: CK-MB VALUE MASS 1.5 NG/ML (<3.6); CPK CREATINE PHOSPHOKINASE 134 U/L (26-192); MB/CK RELATIVE INDEX 1.12 (< OR =4); TROPONIN I < 0.02 NG/ML (< 0.10)
[2020-07-01] MEDS ORDERED: ISOVUE-370 76% 100ML VIAL As Ordered ONE (21:58)
--- NOTE | 2020-07-01 23:06 | REPVR ---
PROCEDURE INFORMATION: Exam: CT Abdomen And Pelvis With Contrast Exam date and time: 07/01/2020 10:11 PM Age: 59 years old Clinical indication: Abdominal pain; Generalized; Additional info: Abd pain TECHNIQUE: Imaging protocol: Computed tomography of the abdomen and pelvis with contrast. Radiation optimization: All CT scans at this facility use at least one of these dose optimization techniques: automated exposure control; mA and/or kV adjustment per patient size (includes targeted exams where dose is matched to clinical indication); or iterative reconstruction. Contrast material: ISOVUE 370; Contrast volume: 100 ml; Contrast route: INTRAVENOUS (IV); COMPARISON: CT ABD/PEL W/IV CONTRAST ONLY 09/24/2019 7:38 PM FINDINGS: Lungs: Clear appearing lung bases. Heart: There is mild cardiomegaly with no evidence of pericardial effusion. Liver: Normal appearing liver. Gallbladder and bile ducts: Surgical clips are noted at the gallbladder fossa and the patient is status post cholecystectomy. The common bile duct measures 1 cm consistent with ectasias post cholecystectomy. Pancreas: Normal appearing pancreas. Spleen: Normal spleen. Adrenal glands: Normal adrenal glands. Kidneys and ureters: There is enhancement of the kidneys. There is no evidence of obstruction of the right or left ureter. Stomach and bowel: The cecum is in the right pelvis and there is no evidence of inflammation in the region of the cecum. There is no evidence of bowel obstruction. Intraperitoneal space: There is no evidence of pneumoperitoneum. Vasculature: There is opacification of the aorta and some atherosclerotic plaque formation. The Lymph nodes: There is no evidence of lymphadenopathy. Urinary bladder: Normal urinary bladder. Reproductive: Patient is post hysterectomy. Bones/joints: The L4-L5 disc space demonstrates a moderate posterior disc protrusion causing moderate impression on the anterior aspect of the thecal sac. Soft tissues: Normal appearing soft tissues. IMPRESSION: No evidence of bowel obstruction. Electronically signed by: Klever Armijo On 07/01/2020 23:05:29 PM
[2020-07-02] MEDS ORDERED: MAGNESIUM CITRATE 300 ML BTL PO ONE (00:05)
[2020-07-02] MEDS ORDERED: METOCLOPRAMIDE INJ 10MG/2ML VIAL (J2765 PER 1) IV ONE (00:25)
[2020-07-02 00:43] VITALS: BP 164/82
--- NOTE | 2020-07-02 02:11 | ECGEPIP ---
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
== END 2020-07-02 01:30 | disposition home or self-care (01) ==
LOC: M ED 20:10
DX: K59.00 Constipation, unspecified (principal); R11.2 Nausea with vomiting, unspecified; I51.7 Cardiomegaly; H81.09 Meniere's disease, unspecified ear; K52.9 Noninfective gastroenteritis and colitis, unspecified; M51.26 Other intervertebral disc displacement, lumbar region; Z79.899 Other long term (current) drug therapy
CPT/HCPCS: 74177; 80047; 80076; 82550; 82553; 83605; 83690; 84484; 85025; 93005; 93041; 96361; 96374; 96375; 99285; J2270; J2405; J2765; Q9967

== ENCOUNTER → 2020-07-08 | Outpatient (REF) | payer OTHER ==
[~2020-07-08] MED LIST changes: +CARV6.25 PO; +GABA-282 PO
[2020-07-08 18:21] LABS: ALBUMIN 4.1 GM/DL (3.2-5.2); BILIRUBIN,TOTAL 0.8 MG/DL (0.2-1.0); CALCIUM LEVEL 8.9 MG/DL (8.5-10.1); CHOLESTEROL RISK RATIO 3.553 (<5); CREATININE FOR GFR 1.07 MG/DL (0.55-1.30); FREE T4 1.25 NG/DL (0.76-1.46); GLOMERULAR FILTRATION RATE 56.3 (>51); POTASSIUM SERUM 4.3 MEQ/L (3.5-5.1); THYROID STIMULATING HORMONE 2.25 uIU/ML (0.358-3.740); TOTAL PROTEIN 7.3 GM/DL (6.4-8.2)
== END ==
LOC: M LAB REF 17:16 → M PLALAB 17:16
PROVIDERS: ATTEND Nurse Practitioner Family
DX: I10 Essential (primary) hypertension (principal)

== ENCOUNTER → 2020-11-02 | Outpatient (CLI) | payer OTHER ==
[~2020-11-02] MED LIST changes: +ERGO500029 PO; +OMEP40CA4 PO; -OMEP40CA97 PO; -VITA50005 PO
== END ==
LOC: M PLALAB 10:28
PROVIDERS: ATTEND Psychiatry & Neurology Neurology
DX: Z13.79 Encounter for other screening for genetic and chromosomal anomalies (principal)

== ENCOUNTER → 2021-02-21 | Outpatient (CLI) | payer BC, OTHER | LOC: M PLALAB 15:37 | PROVIDERS: ATTEND Psychiatry & Neurology Neurology | DX: Z13.79 Encounter for other screening for genetic and chromosomal anomalies (principal) ==

== ENCOUNTER → 2021-06-03 | Outpatient (CLI) | payer BC, OTHER ==
[~2021-06-03] MED LIST changes: -LISI20TA20 PO; +LISI20TA37 PO
== END ==
LOC: M WHC 13:42
PROVIDERS: ATTEND Obstetrics & Gynecology
DX: Z12.31 Encounter for screening mammogram for malignant neoplasm of breast (principal); Z78.0 Asymptomatic menopausal state

== ENCOUNTER 2021-06-16 00:30 | Emergency (ER) | payer BC, OTHER ==
[~2021-06-16] VITALS: Ht 162.6 cm; Wt 79.5 kg
[2021-06-16] MEDS ORDERED: BOOSTRIX/ADACEL VACCINE (DIPHTH/PERTUSS/ACELL/TETANUS) 0.5ML SYR IM ONE (01:25)
[2021-06-16] MEDS ORDERED: DERMABOND TOPICAL SKIN ADHESIVE TOP ONE (01:30)
[2021-06-16] MEDS ORDERED: KETOROLAC TROMETHAMINE 10 MG TAB PO ONE (02:05)
[2021-06-16 02:17] VITALS: BP 160/92
== END 2021-06-16 02:18 | disposition home or self-care (01) ==
LOC: M ED 00:30
DX: S00.03XA Contusion of scalp, initial encounter (principal); S01.311A Laceration without foreign body of right ear, initial encounter; W01.0XXA Fall on same level from slipping, tripping and stumbling without subsequent striking against object, initial encounter; W22.8XXA Striking against or struck by other objects, initial encounter; I10 Essential (primary) hypertension; Y92.009 Unspecified place in unspecified non-institutional (private) residence as the place of occurrence of the external cause; Y93.9 Activity, unspecified; Y99.9 Unspecified external cause status; Z79.811 Long term (current) use of aromatase inhibitors; Z79.899 Other long term (current) drug therapy

== ENCOUNTER → 2021-07-20 | Outpatient (CLI) | payer BC, OTHER ==
[2021-07-20 17:34] LABS: HEMATOCRIT 39.5 % (36.0-47.0); HEMOGLOBIN 12.8 g/dl (12.0-15.5); MEAN CORPUSCULAR HEMOGLOBIN 30.7 pg (27.0-33.0); MEAN CORPUSCULAR HGB CONC 32.4 g/dl (32.0-36.5); MEAN CORPUSCULAR VOLUME 94.7 fl (80.0-96.0); PLATELET COUNT, AUTOMATED 318 10^3/uL (150-450); RED BLOOD COUNT 4.17 10^6/uL (4.00-5.40); WHITE BLOOD COUNT 7.1 10^3/uL (4.0-10.0)
[2021-07-20 17:55] LABS: ALBUMIN 3.8 GM/DL (3.2-5.2); BILIRUBIN,TOTAL 0.6 MG/DL (0.2-1.0); CALCIUM LEVEL 8.9 MG/DL (8.5-10.1); CREATININE FOR GFR 1.06 MG/DL (0.55-1.30); GLOMERULAR FILTRATION RATE 56.5 (>51); POTASSIUM SERUM 4.6 MEQ/L (3.5-5.1)
== END ==
LOC: M PLALAB 15:54
PROVIDERS: ATTEND Physician Assistant
DX: R06.02 Shortness of breath (principal)

== ENCOUNTER → 2022-01-04 | Outpatient (CLI) | payer BC, OTHER ==
[~2022-01-04] MED LIST changes: +BARIUM SULFATE 700 MG TABLET (E-Z-DISK) As Ordered ONE; +E-Z-PAQUE 96% w/w SUSP 176GM BTL As Ordered ONE; +VARIBAR NECTAR 40% w/v 240ML SUSP BTL As Ordered ONE; +VARIBAR PUDDING 40% w/v 230ML TUBE As Ordered ONE
== END ==
LOC: M RAD 12:47
PROVIDERS: ATTEND Physician Assistant Medical
DX: R13.10 Dysphagia, unspecified (principal)

== ENCOUNTER → 2022-02-20 | Outpatient (CLI) | payer BC, OTHER ==
[~2022-02-20] MED LIST changes: -BARIUM SULFATE 700 MG TABLET (E-Z-DISK) As Ordered ONE; -E-Z-PAQUE 96% w/w SUSP 176GM BTL As Ordered ONE; -VARIBAR NECTAR 40% w/v 240ML SUSP BTL As Ordered ONE; -VARIBAR PUDDING 40% w/v 230ML TUBE As Ordered ONE
[2022-02-20 17:35] LABS: BASO # 0.1 10^3/uL (0.0-0.2); BASO % 0.6 % (0.0-1.0); EOS # 0.2 10^3/uL (0.0-0.5); EOS % 2.1 % (0.0-3.0); HEMOGLOBIN 12.5 g/dl (12.0-15.5); LYMPH # 1.6 10^3/uL (1.5-5.0); LYMPH % 20.4 % (24.0-44.0); MEAN CORPUSCULAR HEMOGLOBIN 30.2 pg (27.0-33.0); MEAN CORPUSCULAR HGB CONC 32.1 g/dl (32.0-36.5); MEAN CORPUSCULAR VOLUME 94.2 fl (80.0-96.0); MONO # 0.4 10^3/uL (0.0-0.8); MONO % 5.3 % (2.0-8.0); NEUTROPHILS # 5.7 10^3/uL (1.5-8.5); NEUTROPHILS % 71.1 % (36.0-66.0); PLATELET COUNT, AUTOMATED 314 10^3/uL (150-450); RED BLOOD COUNT 4.14 10^6/uL (4.00-5.40)
[2022-02-20 18:56] LABS: ALBUMIN 3.7 GM/DL (3.2-5.2); BILIRUBIN,TOTAL 0.9 MG/DL (0.2-1.0); BLOOD UREA NITROGEN 14 MG/DL (7-18); CALCIUM LEVEL 9.1 MG/DL (8.5-10.1); CARBON DIOXIDE LEVEL 25 MEQ/L (21-32); CHLORIDE LEVEL 109 MEQ/L (98-107); CHOLESTEROL LEVEL 247 MG/DL (<200); CHOLESTEROL RISK RATIO 4.186 (<5); CREATININE FOR GFR 0.83 MG/DL (0.55-1.30); FREE T4 0.72 NG/DL (0.76-1.46); GLOMERULAR FILTRATION RATE > 60.0 (>51); GLUCOSE, FASTING 100 MG/DL (70-100); HDL CHOLESTEROL 59 MG/DL (>40); IRON (FE) 97 UG/DL (50-170); LDL CHOLESTEROL 159 MG/DL (<100); NON-HDL-C 188 MG/DL; PERCENT SATURATION 23.8 % (13.2-45.0); SODIUM LEVEL 139 MEQ/L (136-145); TOTAL IRON BINDING CAPACITY 408 UG/DL (250-450); TOTAL PROTEIN 7.1 GM/DL (6.4-8.2); TRIGLYCERIDES LEVEL 146 MG/DL (<150)
[2022-02-20 21:27] LABS: ALT/SGPT 25 U/L (12-78); NT-PRO BNP 73 PG/ML (<125); TOTAL 25(OH) VITAMIN D 46.4 NG/ML (30.0-100.0); VITAMIN B12 LEVEL 1063 PG/ML (247-911)
== END ==
LOC: M PLALAB 14:46
PROVIDERS: ATTEND Nurse Practitioner Adult Health
DX: E03.9 Hypothyroidism, unspecified (principal); G10 Huntington's disease; R06.02 Shortness of breath

== ENCOUNTER → 2022-04-20 | Outpatient (CLI) | payer BC, OTHER ==
[2022-04-20 19:30] LABS: FREE T4 0.92 NG/DL (0.89-1.76); THYROID STIMULATING HORMONE 6.126 uIU/ML (0.55-4.78)
== END ==
LOC: M WUC 15:25
PROVIDERS: ATTEND Nurse Practitioner Adult Health
DX: E03.9 Hypothyroidism, unspecified (principal)

== ENCOUNTER → 2022-05-04 | Outpatient (CLI) | payer BC, OTHER ==
[2022-05-04 19:37] LABS: THYROID STIMULATING HORMONE 5.054 uIU/ML (0.55-4.78)
[2022-05-04 19:38] LABS: FREE T4 0.95 NG/DL (0.89-1.76)
== END ==
LOC: M WUC 15:39
PROVIDERS: ATTEND Nurse Practitioner Adult Health
DX: E03.9 Hypothyroidism, unspecified (principal)

== ENCOUNTER → 2022-05-08 | Outpatient (REF) | payer BC, OTHER | LOC: M LAB REF 16:39 | PROVIDERS: ATTEND Family Medicine | DX: R30.0 Dysuria (principal) ==

== ENCOUNTER → 2022-05-25 | Outpatient (CLI) | payer BC, OTHER | LOC: M WUC 14:27 | PROVIDERS: ATTEND Family Medicine | DX: K59.04 Chronic idiopathic constipation (principal) ==

== ENCOUNTER → 2022-06-12 | Outpatient (CLI) | payer BC, OTHER ==
[2022-06-12 14:25] LABS: FREE T4 1.24 NG/DL (0.89-1.76); THYROID STIMULATING HORMONE 1.56 uIU/ML (0.55-4.78)
== END ==
LOC: M PLALAB 10:40
PROVIDERS: ATTEND Family Medicine
DX: E03.9 Hypothyroidism, unspecified (principal)

== ENCOUNTER → 2022-06-20 | Outpatient (CLI) | payer BC, OTHER | LOC: M RAD 11:49 | PROVIDERS: ATTEND Physician Assistant Surgical | DX: M79.605 Pain in left leg (principal) ==

== ENCOUNTER → 2022-07-03 | Outpatient (CLI) | payer BC, OTHER ==
[2022-07-03 19:30] LABS: BLOOD UREA NITROGEN 15 MG/DL (9-23); CREATININE FOR GFR 0.87 MG/DL (0.55-1.30); GLOMERULAR FILTRATION RATE > 60.0 (>51)
== END ==
LOC: M PLALAB 14:58
PROVIDERS: ATTEND Psychiatry & Neurology Neurology
DX: I10 Essential (primary) hypertension (principal)

== ENCOUNTER 2022-07-14 20:50 | Emergency (ER) | payer BC, OTHER ==
[2022-07-14] MEDS ORDERED: KETOROLAC 30 MG/ML 1ML VIAL IV ONE (21:25)
[2022-07-14] MEDS ORDERED: NS 500 ML IV ONE (21:25)
[2022-07-14] MEDS ORDERED: TRAM50TA2 PO (23:13)
[2022-07-14] MEDS ORDERED: LIDO5DIS41 TD (23:13)
[2022-07-14] MEDS ORDERED: LIDOCAINE 5% (LIDODERM) PATCH TD ONE (23:20)
[2022-07-14] MEDS ORDERED: traMADol 50 MG TAB (HOME DOSE PACK) PO ONE (23:20)
[2022-07-14 23:30] VITALS: BP 148/82
== END 2022-07-14 23:50 | disposition home or self-care (01) ==
LOC: EDBD 20:50 → M ED 20:50
DX: S70.01XA Contusion of right hip, initial encounter (principal); S30.0XXA Contusion of lower back and pelvis, initial encounter; W10.9XXA Fall (on) (from) unspecified stairs and steps, initial encounter; Y92.009 Unspecified place in unspecified non-institutional (private) residence as the place of occurrence of the external cause; Z79.890 Hormone replacement therapy; Z79.899 Other long term (current) drug therapy; F32.A Depression, unspecified; F41.9 Anxiety disorder, unspecified; H81.09 Meniere's disease, unspecified ear; G10 Huntington's disease; I10 Essential (primary) hypertension
CPT/HCPCS: 72110; 73502; 96374; 99284; J1885

== ENCOUNTER → 2022-09-15 | Outpatient (CLI) | payer BC, OTHER ==
[~2022-09-15] MED LIST changes: +ISOVUE-300 61% 100ML VIAL As Ordered ONE; +LIDO5DIS41 TD; +LIDOCAINE 1% MDV 20ML VIAL As Ordered ONE; +TRAM50TA2 PO; +methylPREDNISolone SUSP 40MG/ML 1ML VIAL (DEPO MEDROL) As Ordered ONE
== END ==
LOC: M RAD 14:48
PROVIDERS: ATTEND Physician Assistant Surgical
DX: M19.021 Primary osteoarthritis, right elbow (principal); M67.823 Other specified disorders of tendon, right elbow
CPT/HCPCS: 20605; 77002; J1030; Q9967

== ENCOUNTER → 2022-09-27 | Outpatient (CLI) | payer BC, OTHER ==
[~2022-09-27] MED LIST changes: -ISOVUE-300 61% 100ML VIAL As Ordered ONE; -LIDOCAINE 1% MDV 20ML VIAL As Ordered ONE; -methylPREDNISolone SUSP 40MG/ML 1ML VIAL (DEPO MEDROL) As Ordered ONE
== END ==
LOC: M WHC 14:14
PROVIDERS: ATTEND Nurse Practitioner Family
DX: Z12.31 Encounter for screening mammogram for malignant neoplasm of breast (principal)
CPT/HCPCS: 77066; G0279

== ENCOUNTER → 2022-09-28 | Outpatient (CLI) | payer BC, OTHER | LOC: M RAD 14:35 | PROVIDERS: ATTEND Physician Assistant Surgical | DX: M51.36 Other intervertebral disc degeneration, lumbar region (principal); M47.896 Other spondylosis, lumbar region; M43.16 Spondylolisthesis, lumbar region ==

== ENCOUNTER → 2022-11-14 | Outpatient (CLI) | payer BC, OTHER ==
[2022-11-14 17:19] LABS: PLATELET COUNT, AUTOMATED 275 10^3/uL (150-450)
[2022-11-14 17:32] LABS: INR 1.02; PROTHROMBIN TIME 13.6 SECONDS (12.5-14.5)
[2022-11-14 17:33] LABS: PARTIAL THROMBOPLASTIN TIME 22.7 SECONDS (24.8-34.2)
== END ==
LOC: M PLALAB 15:52
PROVIDERS: ATTEND Physician Assistant Surgical
DX: Z01.818 Encounter for other preprocedural examination (principal)

== ENCOUNTER → 2022-11-24 | Outpatient (CLI) | payer BC, OTHER ==
[~2022-11-24] MED LIST changes: +ISOVUE-300 61% 100ML VIAL As Ordered ONE; +LIDOCAINE 1% MDV 20ML VIAL As Ordered ONE; +methylPREDNISolone SUSP 40MG/ML 1ML VIAL (DEPO MEDROL) As Ordered ONE
== END ==
LOC: M RAD 14:45
PROVIDERS: ATTEND Physician Assistant Surgical
DX: M19.012 Primary osteoarthritis, left shoulder (principal)
CPT/HCPCS: 20610; 77002; J1030; Q9967

== ENCOUNTER → 2022-12-16 | Outpatient (CLI) | payer BC, OTHER ==
[~2022-12-16] MED LIST changes: -ISOVUE-300 61% 100ML VIAL As Ordered ONE; -LIDOCAINE 1% MDV 20ML VIAL As Ordered ONE; -methylPREDNISolone SUSP 40MG/ML 1ML VIAL (DEPO MEDROL) As Ordered ONE
[2022-12-16 15:53] LABS: HEMATOCRIT 39.7 % (36.0-47.0); HEMOGLOBIN 12.6 g/dl (12.0-15.5); MEAN CORPUSCULAR HEMOGLOBIN 30.8 pg (27.0-33.0); MEAN CORPUSCULAR HGB CONC 31.7 g/dl (32.0-36.5); MEAN CORPUSCULAR VOLUME 97.1 fl (80.0-96.0); PLATELET COUNT, AUTOMATED 283 10^3/uL (150-450); RED BLOOD COUNT 4.09 10^6/uL (4.00-5.40); WHITE BLOOD COUNT 7.4 10^3/uL (4.0-10.0)
[2022-12-16 16:33] LABS: ALBUMIN 3.3 G/DL (3.2-5.2); ALKALINE PHOSPHATASE 83 U/L (46-116); ALT/SGPT 18 U/L (7.0-40); AST/SGOT 11 U/L (<34); BILIRUBIN,TOTAL 0.5 MG/DL (0.3-1.2); BLOOD UREA NITROGEN 14 MG/DL (9-23); CALCIUM LEVEL 8.8 MG/DL (8.3-10.6); CARBON DIOXIDE LEVEL 29 MMOL/L (20-31); CHLORIDE LEVEL 109 MMOL/L (98-107); CK-MB VALUE MASS 1.6 NG/ML (<3.6); CPK CREATINE PHOSPHOKINASE 127 U/L (34-145); CREATININE FOR GFR 0.81 MG/DL (0.55-1.30); GLOMERULAR FILTRATION RATE > 60.0 (>45); GLUCOSE, FASTING 83 MG/DL (74-106); MB/CK RELATIVE INDEX 1.25 (< OR =4); POTASSIUM SERUM 3.9 MMOL/L (3.5-5.1); SODIUM LEVEL 142 MMOL/L (136-145); TOTAL PROTEIN 6.2 G/DL (5.7-8.2)
[2022-12-16 16:35] LABS: FREE T4 1.03 NG/DL (0.89-1.76); THYROID STIMULATING HORMONE 2.289 uIU/ML (0.55-4.78)
== END ==
LOC: M RAD 15:21
PROVIDERS: ATTEND Student in an Organized Health Care Education/Training Program
DX: R42 Dizziness and giddiness (principal)

== ENCOUNTER → 2022-12-27 | Outpatient (CLI) | payer BC, OTHER ==
[2022-12-27 19:26] LABS: BASO # 0.1 10^3/uL (0.0-0.2); BASO % 0.8 % (0.0-1.0); EOS # 0.2 10^3/uL (0.0-0.5); EOS % 2.2 % (0.0-3.0); HEMATOCRIT 37.6 % (36.0-47.0); HEMOGLOBIN 11.9 g/dl (12.0-15.5); LYMPH # 1.7 10^3/uL (1.5-5.0); LYMPH % 23.5 % (24.0-44.0); MEAN CORPUSCULAR HEMOGLOBIN 30.7 pg (27.0-33.0); MEAN CORPUSCULAR HGB CONC 31.6 g/dl (32.0-36.5); MEAN CORPUSCULAR VOLUME 96.9 fl (80.0-96.0); MONO # 0.4 10^3/uL (0.0-0.8); MONO % 5.3 % (2.0-8.0); NEUTROPHILS % 67.8 % (36.0-66.0); PLATELET COUNT, AUTOMATED 270 10^3/uL (150-450); RED BLOOD COUNT 3.88 10^6/uL (4.00-5.40); WHITE BLOOD COUNT 7.4 10^3/uL (4.0-10.0)
[2022-12-27 19:30] LABS: PERCENT SATURATION 19.3 % (13.2-45.0)
[2022-12-27 19:33] LABS: FERRITIN 31.2 NG/ML (7.3-270.7); FREE T4 1.16 NG/DL (0.89-1.76); THYROID STIMULATING HORMONE 2.41 uIU/ML (0.55-4.78)
== END ==
LOC: M WUC 15:27
PROVIDERS: ATTEND Family Medicine
DX: E03.9 Hypothyroidism, unspecified (principal)

== ENCOUNTER → 2023-02-09 | Outpatient (CLI) | payer BC, OTHER | LOC: M SLEEP HO 11:38 | PROVIDERS: ATTEND Physician Assistant | DX: G47.9 Sleep disorder, unspecified (principal) ==

== ENCOUNTER → 2023-02-26 | Outpatient (CLI) | payer BC, OTHER | LOC: M CARPUL 13:39 | PROVIDERS: ATTEND Family Medicine | DX: I48.0 Paroxysmal atrial fibrillation (principal) ==

== ENCOUNTER → 2023-03-05 | Outpatient (CLI) | payer BC, OTHER ==
[2023-03-05 17:49] LABS: HEMATOCRIT 38.9 % (36.0-47.0); HEMOGLOBIN 13.4 g/dl (12.0-15.5); MEAN CORPUSCULAR HEMOGLOBIN 33.3 pg (27.0-33.0); MEAN CORPUSCULAR HGB CONC 34.4 g/dl (32.0-36.5); MEAN CORPUSCULAR VOLUME 96.5 fl (80.0-96.0); PLATELET COUNT, AUTOMATED 340 10^3/uL (150-450); RED BLOOD COUNT 4.03 10^6/uL (4.00-5.40); WHITE BLOOD COUNT 8.5 10^3/uL (4.0-10.0)
== END ==
LOC: M PLALAB 16:08
PROVIDERS: ATTEND Physician Assistant
DX: I48.0 Paroxysmal atrial fibrillation (principal)

== ENCOUNTER → 2023-11-20 | Outpatient (REF) | payer BC ==
[~2023-11-20] MED LIST changes: +ONDA-282 PO; -ONDA4TAB6 PO
== END ==
LOC: M SFHCWAGY 15:02
PROVIDERS: ATTEND Nurse Practitioner Family
DX: R10.2 Pelvic and perineal pain (principal)

== ENCOUNTER → 2023-11-20 | Outpatient (CLI) | payer BC | LOC: M WHC 10:32 | PROVIDERS: ATTEND Nurse Practitioner Family | DX: Z13.820 Encounter for screening for osteoporosis (principal); Z12.31 Encounter for screening mammogram for malignant neoplasm of breast; M85.851 Other specified disorders of bone density and structure, right thigh; M85.852 Other specified disorders of bone density and structure, left thigh ==

== ENCOUNTER → 2023-11-20 | Outpatient (CLI) | payer BC | LOC: M WHC 10:32 | PROVIDERS: ATTEND Nurse Practitioner Family | DX: Z12.31 Encounter for screening mammogram for malignant neoplasm of breast (principal); Z13.820 Encounter for screening for osteoporosis ==

== ENCOUNTER → 2024-05-23 | Outpatient (CLI) | payer BC ==
[~2024-05-23] MED LIST changes: +GABA-1172; +GABA-1172 PO; -GABA-282; -GABA-282 PO; -HYOS0.1259 PO; +HYOS125E2 PO
[2024-05-23 12:12] LABS: CK-MB VALUE MASS < 1.0 NG/ML (<3.6)
[2024-05-23 12:16] LABS: C REACTIVE PROTEIN QUANTITATIV 1.17 MG/DL (<1.0); CPK CREATINE PHOSPHOKINASE 63 U/L (34-145); IRON (FE) 70 UG/DL (50-170); MB/CK RELATIVE INDEX 1.58 (< OR =4); PERCENT SATURATION 20.2 % (13.2-45.0); TOTAL IRON BINDING CAPACITY 346 UG/DL (250-425)
[2024-05-23 12:17] LABS: FERRITIN 28.3 NG/ML (7.3-270.7)
[2024-05-23 12:19] LABS: VITAMIN B12 LEVEL 1009 PG/ML (211-911)
== END ==
LOC: M RAD 10:10
PROVIDERS: ATTEND Family Medicine
DX: R06.02 Shortness of breath (principal); R05.1 Acute cough

== ENCOUNTER 2024-08-05 09:40 | Emergency (ER) | payer BC ==
[~2024-08-05] VITALS: Ht 162.6 cm; Wt 80.6 kg
[~2024-08-05 09:40] MED LIST changes: -ELIQ5TAB; -HOLTER MONITOR XX
[2024-08-05] MEDS ORDERED: ELIQ5TAB (09:56)
[2024-08-05 10:34] LABS: BASO # 0.1 10^3/uL (0.0-0.2); BASO % 0.7 % (0.0-1.0); EOS # 0.2 10^3/uL (0.0-0.5); EOS % 2.2 % (0.0-3.0); HEMATOCRIT 43.3 % (36.0-47.0); LYMPH # 2.9 10^3/uL (1.5-5.0); LYMPH % 31.3 % (24.0-44.0); MEAN CORPUSCULAR HEMOGLOBIN 30.7 pg (27.0-33.0); MEAN CORPUSCULAR HGB CONC 32.3 g/dl (32.0-36.5); MONO # 0.5 10^3/uL (0.0-0.8); NEUTROPHILS # 5.7 10^3/uL (1.5-8.5); NEUTROPHILS % 60.4 % (36.0-66.0); PLATELET COUNT, AUTOMATED 324 10^3/uL (150-450); RED BLOOD COUNT 4.56 10^6/uL (4.00-5.40); WHITE BLOOD COUNT 9.4 10^3/uL (4.0-10.0)
[2024-08-05 10:47] LABS: INR 1.03; PROTHROMBIN TIME 13.8 SECONDS (12.5-14.5)
[2024-08-05 11:12] LABS: ALBUMIN 3.9 G/DL (3.2-5.2); ALKALINE PHOSPHATASE 89 U/L (35-104); ALT/SGPT 32 U/L (7.0-40); AST/SGOT 25 U/L (<34); BILIRUBIN,DIRECT 0.2 MG/DL (<0.4); BILIRUBIN,TOTAL 0.7 MG/DL (0.3-1.2); BLOOD UREA NITROGEN 14 MG/DL (9-23); CARBON DIOXIDE LEVEL 24 MMOL/L (20-31); CHLORIDE LEVEL 108 MMOL/L (98-107); CK-MB VALUE MASS < 1.0 NG/ML (<3.6); CREATININE FOR GFR 0.73 MG/DL (0.55-1.30); GLOMERULAR FILTRATION RATE > 90.0 (>45); GLUCOSE, FASTING 125 MG/DL (74-106); MAGNESIUM LEVEL 2.1 MG/DL (1.8-2.4); POTASSIUM SERUM 3.5 MMOL/L (3.5-5.1); SODIUM LEVEL 140 MMOL/L (136-145); TOTAL PROTEIN 7.4 G/DL (5.7-8.2)
[2024-08-05 11:14] LABS: THYROID STIMULATING HORMONE 9.625 uIU/ML (0.55-4.78)
[2024-08-05 11:16] LABS: CPK CREATINE PHOSPHOKINASE 77 U/L (34-145); MB/CK RELATIVE INDEX 1.29 (< OR =4)
[2024-08-05] MEDS: ASPIRIN 81MG CHEW TABLET PO ONE (11:19)
[2024-08-05] MEDS ORDERED: ISOVUE-370 76% 100ML VIAL As Ordered ONE (11:35)
[2024-08-05 12:09] LABS: CK-MB VALUE MASS < 1.0 NG/ML (<3.6)
[2024-08-05 12:10] LABS: CPK CREATINE PHOSPHOKINASE 67 U/L (34-145); MB/CK RELATIVE INDEX 1.49 (< OR =4)
[2024-08-05] MEDS ORDERED: HOLTER MONITOR XX (13:22)
[2024-08-05 13:33] VITALS: O2SAT 96
[2024-08-05 14:03] VITALS: BP 124/81; TEMP 98; O2SAT 98
== END 2024-08-05 14:26 | disposition home or self-care (01) ==
LOC: M ED 09:40
DX: R00.2 Palpitations (principal); R22.42 Localized swelling, mass and lump, left lower limb; I10 Essential (primary) hypertension; E03.9 Hypothyroidism, unspecified; G10 Huntington's disease; Z86.79 Personal history of other diseases of the circulatory system; Z79.01 Long term (current) use of anticoagulants; Z79.83 Long term (current) use of bisphosphonates; Z79.899 Other long term (current) drug therapy
CPT/HCPCS: 36415; 71045; 71275; 73564; 80048; 80076; 82550; 82553; 83735; 84443; 84484; 85025; 85610; 87486; 87581; 87633; 87798; 93005; 93041; 93971; 94760; 99285; Q9967

== ENCOUNTER → 2024-08-05 | Outpatient (CLI) | payer BC ==
[~2024-08-05] MED LIST changes: +ELIQ5TAB; +HOLTER MONITOR XX
== END ==
LOC: M EKG 14:35
PROVIDERS: ATTEND Emergency Medicine
DX: R00.2 Palpitations (principal); Z53.9 Procedure and treatment not carried out, unspecified reason

== ENCOUNTER → 2024-11-26 | Outpatient (CLI) | payer BC ==
[~2024-11-26] MED LIST changes: +ELIQ5TAB; +HOLTER MONITOR XX; +LIDO1ADH93 TD; -LIDO5DIS41 TD
== END ==
LOC: M WHC 15:15
PROVIDERS: ATTEND Family Medicine
DX: Z12.31 Encounter for screening mammogram for malignant neoplasm of breast (principal); R92.323 Mammographic fibroglandular density, bilateral breasts

== ENCOUNTER → 2025-03-18 | Outpatient (REF) | payer OTHER | LOC: M LAB REF 16:42 | PROVIDERS: ATTEND Family Medicine | DX: R30.0 Dysuria (principal) ==